=== PATIENT | male | born 1965 | race American Indian/Alaskan Native ===

== ENCOUNTER 2019-11-29 17:38 | Inpatient (IN) | payer BC, OTHER ==
--- NOTE | 2019-11-29 18:38 | Event Note ---
ED Screening Note ED Screening Note: coughing that began 3 days ago body aches subjective fever +diarrhea no n/v no SOB PMHx HTN-has not taken his medication in a month two people at his job tested positive for coronavirus no allergies to meds This initial assessment/diagnostic orders/clinical plan/treatment(s) is/are subject to change based on patients health status, clinical progression and re- assessment by fellow clinical providers in the ED. Further treatment and workup at subsequent clinical providers discretion. Patient/guardian urged not to elope from the ED as their condition may be serious if not clinically assessed and managed. Initial orders include: labs, CXR
[2019-11-29] MEDS ORDERED: ACETAMINOPHEN 325 MG TAB PO ONE (18:39)
[2019-11-29] MEDS ORDERED: SODIUM CHLORIDE 0.9% 1000 ML IV SOLN IV ONE (19:07)
[2019-11-29 19:19] LABS: Basophils % (Auto) 0.3 % (0.0-1.8); Hematocrit 46.7 % (35.5-45.6); Hemoglobin 16.2 gm/dl (11.8-15.2); Lymphocytes # (Auto) 1.8 K/mm3 (1.2-5.4); Lymphocytes % (Auto) 20.8 % (13.4-35.0); Mean Corpuscular HGB Conc 35 % (32-34); Mean Corpuscular Volume 93 fl (84-94); Monocytes # (Auto) 0.5 K/mm3 (0.0-0.8); Monocytes % (Auto) 5.9 % (0.0-7.3); Platelet Count 141 K/mm3 (140-440); Red Blood Count 5.02 M/mm3 (3.65-5.03); Red Cell Distribution Width 13.9 % (13.2-15.2)
--- NOTE | 2019-11-29 19:22 | XRay Report ---
CHEST 2 VIEWS INDICATION / CLINICAL INFORMATION: cough, subjective fever. COMPARISON: None available. FINDINGS: SUPPORT DEVICES: None. HEART / MEDIASTINUM: No significant abnormality. LUNGS / PLEURA: There are subtle parenchymal opacities in the lung bases.No pneumothorax. ADDITIONAL FINDINGS: No significant additional findings. IMPRESSION: 1. There is subtle patchy airspace opacity in the lung bases. This could represent atelectasis. This could represent evolving pneumonia or pneumonitis Signer Name: Dereck Hunter MD Signed: 11/29/2019 7:18 PM Workstation Name: [id number]
[2019-11-29 19:38] LABS: Albumin 4.1 g/dL (3.9-5); Calcium 8.7 mg/dL (8.4-10.2)
[2019-11-29] MEDS ORDERED: IBUPROFEN 800 MG TAB PO ONE (20:18)
[2019-11-29] MEDS ORDERED: AZITHROMYCIN 250 MG TAB PO ONE (20:19)
[2019-11-29] MEDS ORDERED: AZITHROMYCIN 500 MG in SODIUM CHLORIDE 0.9% 250ML 250 ML IV ONE (20:27)
--- NOTE | 2019-11-29 20:45 | Emergency Department Report ---
ED Fever HPI - General Chief Complaint: Pain General Stated Complaint: BODY PAIN PUI?: Yes Time Seen by Provider: 11/29/19 18:35 Source: patient Exam Limitations: no limitations - History of Present Illness Initial Comments: 54-year-old male with a past medical history hypertension presents to the hospital complaining of cough, fever, generalized body aches, and diarrhea for last 3 days. Patient denies nausea, vomiting, or shortness of breath. Patient with history of hypertension but out of his unknown BP medication x1 week. Patient denies known history of renal insufficiency but states his been over 1 year since he has had blood drawn. Patient reports that 2 of his coworkers have tested positive for coronavirus. He has been wearing a mask at his job. He has not been tested for coronavirus. His is here with similar symptoms ED Review of Systems ROS: Stated complaint: BODY PAIN Other details as noted in HPI Comment: All other systems reviewed and negative ED Past Medical Hx - Past Medical History Previous Medical History?: Yes Hx Hypertension: Yes - Surgical History Past Surgical History?: Yes Additional Surgical History: Back - Social History Smoking Status: Never Smoker Substance Use Type: None ED Physical Exam - General Limitations: No Limitations - Other Other exam information: General: No acute distress Head: Atraumatic Eyes: normal appearance ENT: Moist mucous membranes Neck: Normal appearance, no midline tenderness Chest: Clear to auscultation bilaterally CV: Regular rate and rhythm Abdomen: Soft, normal bowel sounds, nontender, nondistended, no rebound or guarding Back: Normal inspection Extremity: Normal inspection, full range of motion Neuro: Alert O x 3, no facial asymmetry, speech clear, no gross motor sensory de ficit Psych: Appropriate behavior Skin: No rash ED Course Vital Signs 11/29/19 11/29/19 11/29/19 17:46 17:47 18:39 Temperature 97.9 F 97.9 F 102.3 F H Pulse Rate 90 90 85 Respiratory 20 20 26 H Rate Blood Pressure 96/66 97/68 Blood Pressure 149/128 [Right] O2 Sat by Pulse 98 98 94 Oximetry 11/29/19 11/29/19 11/29/19 19:53 20:00 20:06 Temperature 101.1 F H Pulse Rate 73 Respiratory 20 14 20 Rate Blood Pressure Blood Pressure 99/67 [Right] O2 Sat by Pulse 94 93 Oximetry 11/29/19 11/29/1911/28/20 20:09 20:16 20:30 Temperature Pulse Rate 63 67 Respiratory 20 25 H 15 Rate Blood Pressure 99/67 99/67 Blood Pressure [Right] O2 Sat by Pulse 93 91 96 Oximetry 11/29/19 11/29/19 11/29/19 20:46 21:00 21:12 Temperature Pulse Rate 67 62 Respiratory 11 L 23 20 Rate Blood Pressure 99/67 99/67 Blood Pressure 99/71 [Right] O2 Sat by Pulse 99 99 Oximetry 11/29/19 11/29/19 11/29/19 21:16 21:30 21:46 Temperature Pulse Rate 62 62 Respiratory 22 19 Rate Blood Pressure 99/71 99/71 99/71 Blood Pressure [Right] O2 Sat by Pulse 98 92 97 Oximetry 11/29/19 11/29/19 11/29/19 22:00 22:12 22:16 Temperature Pulse Rate 60 Respiratory 20 20 Rate Blood Pressure 99/71 99/71 Blood Pressure 102/72 [Right] O2 Sat by Pulse 99 99 Oximetry 11/29/19 11/29/19 11/29/19 22:30 22:34 22:46 Temperature Pulse Rate Respiratory Rate Blood Pressure 99/71 102/72 102/72 Blood Pressure [Right] O2 Sat by Pulse 100 95 98 Oximetry 11/29/19 11/29/19 11/29/19 23:00 23:16 23:30 Temperature Pulse Rate Respiratory Rate Blood Pressure 102/72 102/72 102/72 Blood Pressure [Right] O2 Sat by Pulse 98 99 100 Oximetry 11/29/19 11/29/19 11/30/19 23:34 23:46 00:00 Temperature Pulse Rate Respiratory Rate Blood Pressure 102/72 102/72 102/72 Blood Pressure [Right] O2 Sat by Pulse 100 100 99 Oximetry 11/30/19 11/30/19 00:16 00:30 Temperature Pulse Rate Respiratory Rate Blood Pressure 173/109 173/109 Blood Pressure [Right] O2 Sat by Pulse 98 98 Oximetry ED Medical Decision Making - Lab Data Result diagrams: 11/29/19 18:50 11/29/19 18:50 Lab Results 11/29/19 11/29/19 11/29/19 Range/Units 18:50 18:50 19:13 WBC 8.5 (4.5-11.0) K/mm3 RBC 5.02 (3.65-5.03) M/mm3 Hgb 16.2 H (11.8-15.2) gm/dl Hct 46.7 H (35.5-45.6) % MCV 93 (84-94) fl MCH 32 (28-32) pg MCHC 35 H (32-34) % RDW 13.9 (13.2-15.2) % Plt Count 141 (140-440) K/mm3 Lymph % (Auto) 20.8 (13.4-35.0) % Adams % (Auto) 5.9 (0.0-7.3) % Eos % (Auto) 0.0 (0.0-4.3) % Baso % (Auto) 0.3 (0.0-1.8) % Lymph # 1.8 (1.2-5.4) K/mm3 Adams # 0.5 (0.0-0.8) K/mm3 Eos # 0.0 (0.0-0.4) K/mm3 Baso # 0.0 (0.0-0.1) K/mm3 Seg Neutrophils % 73.0 H (40.0-70.0) % Seg Neutrophils # 6.2 (1.8-7.7) K/mm3 Sodium 136 L (137-145) mmol/L Potassium 3.8 (3.6-5.0) mmol/L Chloride 97.6 L (98-107) mmol/L Carbon Dioxide 24 (22-30) mmol/L Anion Gap 18 mmol/L BUN 21 H (9-20) mg/dL Creatinine 2.0 H (0.8-1.5) mg/dL Estimated GFR 43 ml/min BUN/Creatinine Ratio 11 % Glucose 114 H (75-100) mg/dL Lactic Acid 1.60 (0.7-2.0) mmol/L Calcium 8.7 (8.4-10.2) mg/dL Total Bilirubin 0.60 (0.1-1.2) mg/dL AST 39 (5-40) units/L ALT 24 (7-56) units/L Alkaline Phosphatase 69 (35-129) units/L Total Protein 7.7 (6.3-8.2) g/dL Albumin 4.1 (3.9-5) g/dL Albumin/Globulin Ratio 1.1 % - Radiology Data Radiology results: report reviewed - Medical Decision Making As per respiratory therapist note Room air walking test done with patient per Dr Dia's orders. SPO2 91% resting in bed prior to walking. SPO2 98% breathing room air consistently walking for about 3 minutes. Md & RN made aware of [facility]ANGER assessment. Patient does have a saturation 91% at rest. Patient also has renal sufficiency with unknown chronicity and presented with borderline hypotension despite history of hypertension and noncompliance with meds Patient treated with azithromycin for bilateral pneumonia as well as Tylenol, Motrin for persistent fever, and 30 mL/kg bolus of normal saline for borderline hypotension. Lactic acid normal. Plan to admit patient to the hospital for suspected COVID. Isolation precautions ordered. Covid order set ordered. Critical Care Time: No Critical care attestation.: If time is entered above; I have spent that time in minutes in the direct care of this critically ill patient, excluding procedure time. ED Disposition Clinical Impression: Suspected COVID-19 virus infection, Bilateral pneumonia, Hypoxia, Renal insufficiency Disposition: OP ADMIT IP TO THIS HOSP Is pt being admited?: Yes Condition: Stable
[2019-11-29] MEDS ORDERED: SODIUM CHLORIDE 0.9% 1000 ML 1,000 ML ONE (21:30)
[2019-11-29] MEDS ORDERED: ONDANSETRON 4 MG/2 ML INJ IV PRN (23:31)
[2019-11-30 01:42] LABS: C-Reactive Protein 1.5 mg/dL (0.00-1.30)
[2019-11-30] MEDS ORDERED: SODIUM CHLORIDE 0.9% 1000 ML 1,000 ML ONE (03:48)
[2019-11-30] MEDS: SODIUM CHLORIDE 0.9% 1000 ML 1,000 ML IV SCH ×3 (04:07→20:51)
--- NOTE | 2019-11-30 05:16 | History and Physical Report ---
History of Present Illness Date of examination: 11/29/19 Date of admission: 11/29/19 22:25 Chief complaint: Body ache, fever and cough History of present illness: 54 year old presnting to the emergency room with fever,cough,bodyche and diarrhea. Patient was in contact with [employer] at his job. There is no history of chest pain, nausea or vomiting Past History Past Medical History: hypertension Past Surgical History: Other (Back) Social history: no significant social history Family history: no significant family history Medications and Allergies Allergies Allergy/AdvReac Type Severity Reaction Status Date / Time No Known Allergies Allergy Unverified 11/29/19 17:43 Home Medications Medication Instructions Recorded Confirmed Last Taken Type No Known Home Medications [No 11/30/19 11/30/19 Unknown History Reported Home Medications] Active Meds: Active Medications Acetaminophen (Tylenol) 650 mg PO Q4H PRN PRN Reason: Fever >101 Azithromycin 500 mg/ Sodium (Chloride) 250 mls @ 250 mls/hr IV Q24HR [place]; Protocol Ceftriaxone Sodium (Rocephin/Ns 2 Gm/100 Ml) 2 gm in 100 mls @ 200 mls/hr IV Q24HR [place]; Protocol Sodium Chloride (Nacl 0.9% 1000 Ml) 1,000 mls @ 125 mls/hr IV DIRECT [place] Last Admin: 11/30/19 04:07 Dose: 125 mls/hr Documented by: Ondansetron HCl (Zofran) 4 mg IV Q8H PRN PRN Reason: Nausea And Vomiting Review of Systems Constitutional: fever, no weight loss, no weight gain, no chills, no sweats, no night sweats, no fatigue, no weakness, no malaise Eyes: bilateral: other (NO BILATERAL EYE SYMPTOMS) Ears, nose, mouth and throat: no ear pain, no ear discharge, no nasal congestion, no nasal discharge, no sinus pressure, no sinus pain, no mouth pain, no dysphagia, no hoarseness, no sore throat, no swelling in mouth, no swelling in throat, no headache Cardiovascular: shortness of breath, no chest pain, no palpitations, no syncope, no lightheadedness, no claudication Respiratory: cough, shortness of breath, no congestion Gastrointestinal: diarrhea, no nausea, no vomiting, no constipation, no change in bowel habits, no melena, no hematochezia, no loss of appetite, no early satiety, no jaundice, no dyspepsia/bloating Genitourinary Male: dysuria Rectal: no pain, no itching Musculoskeletal: no neck stiffness, no neck pain, no shooting arm pain, no arm numbness/tingling, no muscle weakness, no muscle cramps, no myalgias Integumentary: no rash, no pruritis, no redness, no sores, no jaundice, no boils, no lesions, no darkening of skin, no dryness Neurological: no paralysis, no weakness, no parathesias, no numbness, no tingling, no seizures, no syncope, no tremors, no ataxia, no headaches, no convulsions, no change in speech, no change in mentation, no confusion, no double vision, no loss of vision Psychiatric: no anxiety, no insomnia, no hypersomnia, no change in libido, no suicidal ideation, no disorientation, no confusion Endocrine: no cold intolerance, no heat intolerance, no polydipsia, no polyuria, no nocturia, no excessive sweating, no palpatations Hematologic/Lymphatic: no easy bruising, no easy bleeding, no lymphadenopathy, no lymphedema Exam - Constitutional Vitals: Temp Pulse Resp BP Pulse Ox 101.1 F H 59 L 19 158/102 95 11/29/19 20:06 11/30/19 04:00 11/30/19 04:00 11/30/19 04:00 11/30/19 04:00 General appearance: Present: no acute distress, well-nourished. Absent: dis heveled - EENT Eyes: Present: PERRL, EOM intact. Absent: scleral icterus ENT: hearing intact - Neck Neck: Present: supple, normal ROM. Absent: enlarged thyroid, carotid bruits - Cardiovascular Rhythm: regular Heart Sounds: Present: S1 & S2. Absent: gallop, systolic murmur, diastolic murmur, click - Extremities Extremities: no ischemia - Abdominal General gastrointestinal: Present: soft, non-tender, non-distended, normal bowel sounds. Absent: tender, distended, rigid Male genitourinary: Present: deferred - Rectal Rectal Exam: deferred - Integumentary Integumentary: Present: clear, warm - Musculoskeletal Musculoskeletal: strength equal bilaterally - Psychiatric Psychiatric: appropriate mood/affect Results - Labs CBC & Chem 7: 11/29/19 18:50 11/29/19 22:59 Labs: Laboratory Last Values WBC 8.5 K/mm3 (4.5-11.0) 11/29/19 18:50 RBC 5.02 M/mm3 (3.65-5.03) 11/29/19 18:50 Hgb 16.2 gm/dl (11.8-15.2) H 11/29/19 18:50 Hct 46.7 % (35.5-45.6) H 11/29/19 18:50 MCV 93 fl (84-94) 11/29/19 18:50 MCH 32 pg (28-32) 11/29/19 18:50 MCHC 35 % (32-34) H 11/29/19 18:50 RDW 13.9 % (13.2-15.2) 11/29/19 18:50 Plt Count 141 K/mm3 (140-440) 11/29/19 18:50 Lymph % (Auto) 20.8 % (13.4-35.0) 11/29/19 18:50 Heard % (Auto) 5.9 % (0.0-7.3) 11/29/19 18:50 Eos % (Auto) 0.0 % (0.0-4.3) 11/29/19 18:50 Baso % (Auto) 0.3 % (0.0-1.8) 11/29/19 18:50 Lymph # 1.8 K/mm3 (1.2-5.4) 11/29/19 18:50 Heard # 0.5 K/mm3 (0.0-0.8) 11/29/19 18:50 Eos # 0.0 K/mm3 (0.0-0.4) 11/29/19 18:50 Baso # 0.0 K/mm3 (0.0-0.1) 11/29/19 18:50 Seg Neutrophils % 73.0 % (40.0-70.0) H 11/29/19 18:50 Seg Neutrophils # 6.2 K/mm3 (1.8-7.7) 11/29/19 18:50 D-Dimer 516.74 ng/mlDDU (0-234) H 11/29/19 22:59 Sodium 136 mmol/L (137-145) L 11/29/19 18:50 Potassium 3.8 mmol/L (3.6-5.0) 11/29/19 18:50 Chloride 97.6 mmol/L (98-107) L 11/29/19 18:50 Carbon Dioxide 24 mmol/L (22-30) 11/29/19 18:50 Anion Gap 18 mmol/L 11/29/19 18:50 BUN 21 mg/dL (9-20) H 11/29/19 18:50 Creatinine 2.0 mg/dL (0.8-1.5) H 11/29/19 18:50 Estimated GFR 43 ml/min 11/29/19 18:50 BUN/Creatinine Ratio 11 % 11/29/19 18:50 Glucose 92 mg/dL (75-100) 11/29/19 22:59 Lactic Acid 1.10 mmol/L (0.7-2.0) 11/29/19 22:59 Calcium 8.7 mg/dL (8.4-10.2) 11/29/19 18:50 Total Bilirubin 0.60 mg/dL (0.1-1.2) 11/29/19 18:50 AST 39 units/L (5-40) 11/29/19 18:50 ALT 24 units/L (7-56) 11/29/19 18:50 Alkaline Phosphatase 69 units/L (35-129) 11/29/19 18:50 Lactate Dehydrogenase 301 units/L (91-180) H 11/29/19 22:59 C-Reactive Protein 1.50 mg/dL (0.00-1.30) H 11/29/19 22:59 Total Protein 7.7 g/dL (6.3-8.2) 11/29/19 18:50 Albumin 4.1 g/dL (3.9-5) 11/29/19 18:50 Albumin/Globulin Ratio 1.1 % 11/29/19 18:50 Microbiology: Microbiology 11/29/19 19:13 Peripheral/Venous Blood Culture - Preliminary Culture in Progress 11/29/19 19:13 Peripheral/Venous Blood Culture - Preliminary Culture in Progress Felipe/IV: IV Catheter Type [Left INT / Saline Lock Antecubital] Assessment and Plan - Patient Problems (1) Bilateral pneumonia Current Visit: Yes Status: Acute Plan to address problem: I. I.V Zithromax Antibiotic 2. I.V Rocephine Antibiotic 3. Tylenol for fever 4. Robitussin for cough (2) Suspected COVID-19 virus infection Current Visit: Yes Status: Acute Plan to address problem: 1. Contact and Droplet Isolation 2. COVID 19 testing (3) Renal insufficiency Current Visit: Yes Status: Acute Plan to address problem: Nephrology consult with Dr. Campos
[2019-11-30 05:26] LABS: Bilirubin,Urine NEG (Negative); Blood,Urine MOD (Negative); Color,Urine Yellow (Yellow); Mucus,Urine FEW /HPF; Urobilinogen,Urine < 2.0 mg/dL (<2.0)
[2019-11-30] MEDS ORDERED: ACETAMINOPHEN 500 MG TAB ONE (08:40)
[2019-11-30] MEDS: ACETAMINOPHEN 325 MG TAB PO PRN ×2 (09:08→20:49)
--- NOTE | 2019-11-30 09:33 | Consultation ---
History of Present Illness - Reason for Consult Consult date: 11/30/19 acute renal failure - History of Present Illness 54-year-old male was admitted for worsening cough and fever with diarrhea for last 3 days. he reports that 2 of his coworkers have tested positive for coronavirus. he was found to have abnormal kidney function and renal consult was requested Past History Past Medical History: hypertension Past Surgical History: Other (Back) Social history: no significant social history Family history: no significant family history Medications and Allergies Allergies Allergy/AdvReac Type Severity Reaction Status Date / Time No Known Allergies Allergy Unverified 11/29/19 17:43 Home Medications Medication Instructions Recorded Confirmed Last Taken Type No Known Home Medications [No 11/30/19 11/30/19 Unknown History Reported Home Medications] Active Meds: Active Medications Acetaminophen (Tylenol) 650 mg PO Q4H PRN PRN Reason: Fever >101 Last Admin: 11/30/19 09:08 Dose: 650 mg Documented by: Azithromycin 500 mg/ Sodium (Chloride) 250 mls @ 250 mls/hr IV Q24HR [place]; Protocol Ceftriaxone Sodium (Rocephin/Ns 2 Gm/100 Ml) 2 gm in 100 mls @ 200 mls/hr IV Q24HR [place]; Protocol Sodium Chloride (Nacl 0.9% 1000 Ml) 1,000 mls @ 125 mls/hr IV DIRECT [place] Last Admin: 11/30/19 04:07 Dose: 125 mls/hr Documented by: Ondansetron HCl (Zofran) 4 mg IV Q8H PRN PRN Reason: Nausea And Vomiting Review of Systems All systems: negative (cough, fever) Exam - Vital Signs Vital signs: Vital Signs Temp Pulse Resp BP Pulse Ox 97.9 F 90 20 149/128 98 11/29/19 17:46 11/29/19 17:46 11/29/19 17:46 11/29/19 17:46 11/29/19 17:46 Results - Lab Results 11/29/19 18:50 11/29/19 22:59 Most recent lab results Calcium 8.7 mg/dL (8.4-10.2) 11/29/19 18:50 Assessment and Plan acute kidney failure likely prerenal azotemia Sepsis COVID-19 rule out unknown Cr baseline Cont IVF will check urine lytes, protein and eos will check renal US renally dose meds Strict I&O Daily weight Avoid nephrotoxins Yoel Campos MD [phone]
[2019-11-30] MEDS ORDERED: AZITHROMYCIN 500 MG in SODIUM CHLORIDE 0.9% 250ML 250 ML IV SCH (10:00)
[2019-11-30] MEDS ORDERED: cefTRIAXone/NS 2 GM/100 ML 2 GM/100 ML BAG IV SCH (10:00)
--- NOTE | 2019-11-30 12:53 | Consultation ---
History of Present Illness - Reason for Consult Consult date: 11/30/19 suspected COVID Requesting physician: SHERRY RENAE - History of Present Illness The patient is a 54-year-old male with hypertension who was admitted to the hospital yesterday after he presented with complaints of fever, cough, generalized body aches going on for about 3 days. He was also having a few episodes of diarrhea. He reportedly had been exposed to COVID-19 positive coworkers. Chest x-ray on admission showed patchy bilateral pulmonary opacities. COVID-19 PCR is positive. Infectious diseases was consulted for additional evaluation. He has been having fevers, T-max 102.3 F. Oxygen saturation is 100% on room air. Review of Systems: reviewed in the chart, unable to obtain directly due to PPE shortage and preservation Past History Past Medical History: hypertension Past Surgical History: Other (Back) Social history: no significant social history Family history: no significant family history Medications and Allergies Allergies Allergy/AdvReac Type Severity Reaction Status Date / Time No Known Allergies Allergy Unverified 11/29/19 17:43 Home Medications Medication Instructions Recorded Confirmed Last Taken Type No Known Home Medications [No 11/30/19 11/30/19 Unknown History Reported Home Medications] Active Meds: Active Medications Acetaminophen (Tylenol) 650 mg PO Q4H PRN PRN Reason: Fever >101 Last Admin: 11/30/19 09:08 Dose: 650 mg Documented by: Apixaban (Eliquis) 2.5 mg PO Q12HR [place]; Protocol Azithromycin 500 mg/ Sodium (Chloride) 250 mls @ 250 mls/hr IV Q24HR [place]; Protocol Last Admin: 11/30/19 10:20 Dose: 250 mls/hr Documented by: Ceftriaxone Sodium (Rocephin/Ns 2 Gm/100 Ml) 2 gm in 100 mls @ 200 mls/hr IV Q24HR [place]; Protocol Last Admin: 11/30/19 10:21 Dose: 200 mls/hr Documented by: Sodium Chloride (Nacl 0.9% 1000 Ml) 1,000 mls @ 125 mls/hr IV DIRECT [place] Last Admin: 11/30/19 10:21 Dose: 125 mls/hr Documented by: Ondansetron HCl (Zofran) 4 mg IV Q8H PRN PRN Reason: Nausea And Vomiting Physical Examination - Physical Exam Narrative exam: Physical Exam (reviewed in chart due to PPE conservation) Constitutional: limited due to PPE conservation strategy Head, Ears, Nose: limited due to PPE conservation strategy Eyes: limited due to PPE conservation strategy Neck: limited due to PPE conservation strategy Oral: limited due to PPE conservation strategy Cardiovascular: limited due to PPE conservation strategy Respiratory: limited due to PPE conservation strategy GI: limited due to PPE conservation strategy Musculoskeletal: limited due to PPE conservation strategy Skin: limited due to PPE conservation strategy Hem/Lymphatic: limited due to PPE conservation strategy Psych: limited due to PPE conservation strategy Neurological: limited due to PPE conservation strategy - Constitutional Vitals: Vital Signs Temp Pulse Resp BP Pulse Ox 100.8 F H 59 L 17 140/83 100 11/30/19 09:08 11/30/19 12:00 11/30/19 12:00 11/30/19 08:00 11/30/19 12:00 Temperature -Last 24 Hours Temperature 100.8 F Temperature 99.1 F Temperature 101.1 F Temperature 102.3 F Temperature 97.9 F Temperature 97.9 F Results - Labs CBC & Chem 7: 11/29/19 18:50 11/29/19 22:59 Labs: Abnormal lab results 11/29/19 11/29/19 11/29/19 Range/Units 18:50 18:50 22:59 Hgb 16.2 H (11.8-15.2) gm/dl Hct 46.7 H (35.5-45.6) % MCHC 35 H (32-34) % Seg Neutrophils % 73.0 H (40.0-70.0) % D-Dimer 516.74 H (0-234) ng/mlDDU Sodium 136 L (137-145) mmol/L Chloride 97.6 L (98-107) mmol/L BUN 21 H (9-20) mg/dL Creatinine 2.0 H (0.8-1.5) mg/dL Glucose 114 H (75-100) mg/dL Ferritin (13.0-400.0) ng/mL Lactate Dehydrogenase (91-180) units/L Total Creatine Kinase (55-170) units/L C-Reactive Protein (0.00-1.30) mg/dL Coronavirus (PCR) (Negative) 11/29/19 11/30/19 11/30/19 Range/Units 22:59 04:56 08:04 Hgb (11.8-15.2) gm/dl Hct (35.5-45.6) % MCHC (32-34) % Seg Neutrophils % (40.0-70.0) % D-Dimer (0-234) ng/mlDDU Sodium (137-145) mmol/L Chloride (98-107) mmol/L BUN (9-20) mg/dL Creatinine (0.8-1.5) mg/dL Glucose (75-100) mg/dL Ferritin 452.0 H (13.0-400.0) ng/mL Lactate Dehydrogenase 301 H (91-180) units/L Total Creatine Kinase (55-170) units/L C-Reactive Protein 1.50 H (0.00-1.30) mg/dL Coronavirus (PCR) Positive A (Negative) 11/30/19 Range/Units 10:45 Hgb (11.8-15.2) gm/dl Hct (35.5-45.6) % MCHC (32-34) % Seg Neutrophils % (40.0-70.0) % D-Dimer (0-234) ng/mlDDU Sodium (137-145) mmol/L Chloride (98-107) mmol/L BUN (9-20) mg/dL Creatinine (0.8-1.5) mg/dL Glucose (75-100) mg/dL Ferritin (13.0-400.0) ng/mL Lactate Dehydrogenase (91-180) units/L Total Creatine Kinase 435 H (55-170) units/L C-Reactive Protein (0.00-1.30) mg/dL Coronavirus (PCR) (Negative) - Imaging and Cardiology Chest x-ray: report reviewed (patchy infiltrates) Assessment and Plan Cultures: 11/29/2019 blood culture: In process 11/30/2019 COVID-19 PCR: Positive A/P: 54-year-old male with hypertension with: #Bilateral pneumonia secondary to COVID-19: D-dimer 516, ferritin 452, LDH 301, procalcitonin 0.07, CRP 1.5. Oxygen saturation is 100% on room air. #Acute kidney injury: Creatinine 2.0. Nephrology following. Recs: Patient's O2 saturation is 100% on room air, no role for dexamethasone at this time. If he develops hypoxia, start IV/PO Dexamethasone 6 mg daily x 10 days Elevated d-dimer, consider weight-based anticoagulation prophylaxis Procalcitonin is normal, antibiotics discontinued trend ferritin, LDH, d-dimer, CRP every 2 days for risk stratification and to assess disease progression Aurea Tran MD, FACP [facility] C: [phone] O: [phone] F: [phone]
[2019-11-30] MEDS ORDERED: APIXABAN 5 MG TAB PO SCH (13:00)
[2019-11-30] MEDS ORDERED: APIXABAN 2.5 MG TAB PO SCH (13:00)
--- NOTE | 2019-11-30 13:59 | Progress Note ---
Assessment and Plan Assessment and plan: Patient is a 54-year-old male with a past medical history hypertension presents to the hospital complaining of cough, fever, generalized body aches, and diarrhea for last 3 days. According to the patient the also had similar symptoms. However he denies nausea, vomiting, or shortness of breath. Patient with history of hypertension but out of his unknown BP medication x1 week. Patient denies known history of renal insufficiency but states his been over 1 year since he has had blood drawn. Patient reports that 2 of his coworkers have tested positive for coronavirus. He has been wearing a mask at his job. He has not been tested for coronavirus. His is here with similar symptoms. COVID- 19 testing was positive patient had been having fevers with T-max of 102.3 Sepsis COVID-19 Bilateral pneumonia likely secondary to coronavirus Secondary Coagulopathy JONH secondary to vasomotor nephropathy Plan Continue supportive care Start anticogulation Pre-and post Ambulatory Oxygen ID Input noted Nephrology consult Blood cx Follow Blood cultures Antibiotics per ID History Interval history: Patient seen and examined in no apparent respiratory distress at this time. Hospitalist Physical - Physical exam Narrative exam: VITAL SIGNS: Reviewed. GENERAL: The patient appears normally developed, Vital signs as documented. HEAD: No signs of head trauma. EYES: Pupils are equal. Extraocular motions intact. EARS: Hearing grossly intact. MOUTH: Oropharynx is normal. NECK: No adenopathy, no JVD. CHEST: Chest with clear breath sounds bilaterally. No wheezes, rales, or rhonchi. CARDIAC: Regular rate and rhythm. S1 and S2, without murmurs, gallops, or rubs. VASCULAR: No Edema. Peripheral pulses normal and equal in all extremities. ABDOMEN: Soft, non tender and non distended. No rebound or guarding, and no masses palpated. Bowel Sounds normal. MUSCULOSKELETAL: Good range of motion of all major joints. Extremities without clubbing, cyanosis or edema. NEUROLOGIC EXAM: Alert and oriented x 3 No focal sensory or strength deficits. Speech normal. Follows commands. PSYCHIATRIC: Mood normal. SKIN: detial exam as documented in skin assessment - Constitutional Vitals: Temp Pulse Resp BP Pulse Ox 100.8 F H 59 L 17 140/83 100 11/30/19 09:08 11/30/19 12:00 11/30/19 12:00 11/30/19 08:00 11/30/19 12:00 General appearance: Present: no acute distress, well-nourished. Absent: disheveled Results - Labs CBC & Chem 7: 11/29/19 18:50 11/29/19 22:59 Labs: Laboratory Last Values WBC 8.5 K/mm3 (4.5-11.0) 11/29/19 18:50 RBC 5.02 M/mm3 (3.65-5.03) 11/29/19 18:50 Hgb 16.2 gm/dl (11.8-15.2) H 11/29/19 18:50 Hct 46.7 % (35.5-45.6) H 11/29/19 18:50 MCV 93 fl (84-94) 11/29/19 18:50 MCH 32 pg (28-32) 11/29/19 18:50 MCHC 35 % (32-34) H 11/29/19 18:50 RDW 13.9 % (13.2-15.2) 11/29/19 18:50 Plt Count 141 K/mm3 (140-440) 11/29/19 18:50 Lymph % (Auto) 20.8 % (13.4-35.0) 11/29/19 18:50 [place] % (Auto) 5.9 % (0.0-7.3) 11/29/19 18:50 Eos % (Auto) 0.0 % (0.0-4.3) 11/29/19 18:50 Baso % (Auto) 0.3 % (0.0-1.8) 11/29/19 18:50 Lymph # 1.8 K/mm3 (1.2-5.4) 11/29/19 18:50 [place] # 0.5 K/mm3 (0.0-0.8) 11/29/19 18:50 Eos # 0.0 K/mm3 (0.0-0.4) 11/29/19 18:50 Baso # 0.0 K/mm3 (0.0-0.1) 11/29/19 18:50 Seg Neutrophils % 73.0 % (40.0-70.0) H 11/29/19 18:50 Seg Neutrophils # 6.2 K/mm3 (1.8-7.7) 11/29/19 18:50 D-Dimer 516.74 ng/mlDDU (0-234) H 11/29/19 22:59 Sodium 136 mmol/L (137-145) L 11/29/19 18:50 Potassium 3.8 mmol/L (3.6-5.0) 11/29/19 18:50 Chloride 97.6 mmol/L (98-107) L 11/29/19 18:50 Carbon Dioxide 24 mmol/L (22-30) 11/29/19 18:50 Anion Gap 18 mmol/L 11/29/19 18:50 BUN 21 mg/dL (9-20) H 11/29/19 18:50 Creatinine 2.0 mg/dL (0.8-1.5) H 11/29/19 18:50 Estimated GFR 43 ml/min 11/29/19 18:50 BUN/Creatinine Ratio 11 % 11/29/19 18:50 Glucose 92 mg/dL (75-100) 11/29/19 22:59 Lactic Acid 1.10 mmol/L (0.7-2.0) 11/29/19 22:59 Calcium 8.7 mg/dL (8.4-10.2) 11/29/19 18:50 Ferritin 452.0 ng/mL (13.0-400.0) H 11/30/19 04:56 Total Bilirubin 0.60 mg/dL (0.1-1.2) 11/29/19 18:50 AST 39 units/L (5-40) 11/29/19 18:50 ALT 24 units/L (7-56) 11/29/19 18:50 Alkaline Phosphatase 69 units/L (35-129) 11/29/19 18:50 Lactate Dehydrogenase 301 units/L (91-180) H 11/29/19 22:59 Total Creatine Kinase 435 units/L (55-170) H 11/30/19 10:45 C-Reactive Protein 1.50 mg/dL (0.00-1.30) H 11/29/19 22:59 Total Protein 7.7 g/dL (6.3-8.2) 11/29/19 18:50 Albumin 4.1 g/dL (3.9-5) 11/29/19 18:50 Albumin/Globulin Ratio 1.1 % 11/29/19 18:50 Procalcitonin 0.07 ng/mL (<0.15) 11/29/19 22:59 Urine Color Yellow (Yellow) 11/30/19 05:08 Urine Turbidity Clear (Clear) 11/30/19 05:08 Urine pH 5.0 (5.0-7.0) 11/30/19 05:08 Ur Specific [place] 1.016 (1.003-1.030) 11/30/19 05:08 Urine Protein 30 mg/dl mg/dL (Negative) 11/30/19 05:08 Urine Glucose (UA) Neg mg/dL (Negative) 11/30/19 05:08 Urine Ketones Neg mg/dL (Negative) 11/30/19 05:08 Urine Blood Mod (Negative) 11/30/19 05:08 Urine Nitrite Neg (Negative) 11/30/19 05:08 Urine Bilirubin Neg (Negative) 11/30/19 05:08 Urine Urobilinogen < 2.0 mg/dL (<2.0) 11/30/19 05:08 Ur Leukocyte Esterase Neg (Negative) 11/30/19 05:08 Urine WBC (Auto) 1.0 /HPF (0.0-6.0) 11/30/19 05:08 Urine RBC (Auto) 3.0 /HPF (0.0-6.0) 11/30/19 05:08 U Epithel Cells (Auto) < 1.0 /HPF (0-13.0) 11/30/19 05:08 Urine Mucus Few /HPF 11/30/19 05:08 Coronavirus (PCR) Positive (Negative) A 11/30/19 08:04 Microbiology: Microbiology 11/29/19 19:13 Peripheral/Venous Blood Culture - Preliminary Culture in Progress 11/29/19 19:13 Peripheral/Venous Blood Culture - Preliminary Culture in Progress Felipe/IV: IV Catheter Type [Left INT / Saline Lock Antecubital] Active Medications - Current Medications Current Medications: Generic Name Dose Route Start Last Admin Trade Name Freq PRN Reason Stop Dose Admin Acetaminophen 650 mg 11/29/19 23:30 11/30/19 09:08 Tylenol PO 650 mg Q4H PRN Administration Fever >101 Apixaban 2.5 mg 11/30/19 13:00 Eliquis PO Q12HR [place] Sodium Chloride 1,000 mls @ 125 mls/hr 11/29/19 23:45 11/30/19 10:21 Nacl 0.9% 1000 Ml IV 125 mls/hr DIRECT [place] Administration Ondansetron HCl 4 mg 11/29/19 23:31 Zofran IV Q8H PRN Nausea And Vomiting
[2019-11-30 14:06] LABS: Creatinine,Urine 193.5 mg/dL (0.1-20.0); Protein/Creatinine Ratio,Urine 0.26
[2019-11-30] MEDS: APIXABAN 2.5 MG TAB PO SCH ×2 (16:01→21:16)
[2019-12-01] MEDS: ACETAMINOPHEN 325 MG TAB PO PRN ×2 (00:56→12:10)
[2019-12-01] MEDS: SODIUM CHLORIDE 0.9% 1000 ML 1,000 ML IV SCH ×2 (02:43→19:20)
[2019-12-01 05:52] LABS: Basophils % (Auto) 0.2 % (0.0-1.8); Hematocrit 39.7 % (35.5-45.6); Hemoglobin 13.5 gm/dl (11.8-15.2); Lymphocytes # (Auto) 1.2 K/mm3 (1.2-5.4); Lymphocytes % (Auto) 21.9 % (13.4-35.0); Mean Corpuscular HGB Conc 34 % (32-34); Mean Corpuscular Volume 92 fl (84-94); Monocytes # (Auto) 0.4 K/mm3 (0.0-0.8); Monocytes % (Auto) 6.5 % (0.0-7.3); Platelet Count 112 K/mm3 (140-440); Red Cell Distribution Width 13.6 % (13.2-15.2)
--- NOTE | 2019-12-01 09:56 | Progress Note ---
Assessment and Plan Assessment and plan: Patient is a 54-year-old male with a past medical history hypertension presents to the hospital complaining of cough, fever, generalized body aches, and diarrhea for last 3 days. According to the patient the also had similar symptoms. However he denies nausea, vomiting, or shortness of breath. Patient with history of hypertension but out of his unknown BP medication x1 week. Patient denies known history of renal insufficiency but states his been over 1 year since he has had blood drawn. Patient reports that 2 of his coworkers have tested positive for coronavirus. He has been wearing a mask at his job. He has not been tested for coronavirus. His is here with similar symptoms. COVID- 19 testing was positive patient had been having fevers with T-max of 102.3 11/30: Still with intermittent fever, No increased oxygen need, await ID re- evaluation, may need antibiotics considering recurrent fever. Dexamethasone 6 mg daily started. ID is also initiating rem D severe and check an interleukin-6 level. No antibiotics at this time as patient procalcitonin is normal Sepsis COVID-19 Bilateral pneumonia likely secondary to coronavirus Secondary Coagulopathy JONH secondary to vasomotor nephropathy Acute hypoxemic respiratory failure Plan Continue supportive care Continue anticogulation Pre-and post Ambulatory Oxygen ID Input noted Nephrology consult Blood cx Follow Blood cultures Antibiotics per ID History Interval history: Patient seen and examined in no apparent respiratory distress at this time. Hospitalist Physical - Physical exam Narrative exam: VITAL SIGNS: Reviewed. GENERAL: The patient appears normally developed, Vital signs as documented. HEAD: No signs of head trauma. EYES: Pupils are equal. Extraocular motions intact. EARS: Hearing grossly intact. MOUTH: Oropharynx is normal. NECK: No adenopathy, no JVD. CHEST: Chest with clear breath sounds bilaterally. No wheezes, rales, or rhonchi. CARDIAC: Regular rate and rhythm. S1 and S2, without murmurs, gallops, or rubs. VASCULAR: No Edema. Peripheral pulses normal and equal in all extremities. ABDOMEN: Soft, non tender and non distended. No rebound or guarding, and no masses palpated. Bowel Sounds normal. MUSCULOSKELETAL: Good range of motion of all major joints. Extremities without clubbing, cyanosis or edema. NEUROLOGIC EXAM: Alert and oriented x 3 No focal sensory or strength deficits. Speech normal. Follows commands. PSYCHIATRIC: Mood normal. SKIN: detail exam as documented in skin assessment - Constitutional Vitals: Temp Pulse Resp BP Pulse Ox 102.2 F H 62 25 H 140/83 97 12/01/19 08:00 12/01/19 08:00 11/30/19 16:00 11/30/19 08:00 11/30/19 16:00 General appearance: Present: no acute distress, well-nourished. Absent: disheveled Results - Labs CBC & Chem 7: 12/01/19 05:31 12/01/19 05:31 Labs: Laboratory Last Values WBC 5.5 K/mm3 (4.5-11.0) 12/01/19 05:31 RBC 4.30 M/mm3 (3.65-5.03) 12/01/19 05:31 Hgb 13.5 gm/dl (11.8-15.2) 12/01/19 05:31 Hct 39.7 % (35.5-45.6) D 12/01/19 05:31 MCV 92 fl (84-94) 12/01/19 05:31 MCH 31 pg (28-32) 12/01/19 05:31 MCHC 34 % (32-34) 12/01/19 05:31 RDW 13.6 % (13.2-15.2) 12/01/19 05:31 Plt Count 112 K/mm3 (140-440) L 12/01/19 05:31 Lymph % (Auto) 21.9 % (13.4-35.0) 12/01/19 05:31 [place] % (Auto) 6.5 % (0.0-7.3) 12/01/19 05:31 Eos % (Auto) 0.0 % (0.0-4.3) 12/01/19 05:31 Baso % (Auto) 0.2 % (0.0-1.8) 12/01/19 05:31 Lymph # 1.2 K/mm3 (1.2-5.4) 12/01/19 05:31 [place] # 0.4 K/mm3 (0.0-0.8) 12/01/19 05:31 Eos # 0.0 K/mm3 (0.0-0.4) 12/01/19 05:31 Baso # 0.0 K/mm3 (0.0-0.1) 12/01/19 05:31 Seg Neutrophils % 71.4 % (40.0-70.0) H 12/01/19 05:31 Seg Neutrophils # 3.9 K/mm3 (1.8-7.7) 12/01/19 05:31 D-Dimer 516.74 ng/mlDDU (0-234) H 11/29/19 22:59 Sodium 140 mmol/L (137-145) 12/01/19 05:31 Potassium 4.3 mmol/L (3.6-5.0) 12/01/19 05:31 Chloride 104.8 mmol/L (98-107) 12/01/19 05:31 Carbon Dioxide 25 mmol/L (22-30) 12/01/19 05:31 Anion Gap 15 mmol/L 12/01/19 05:31 BUN 14 mg/dL (9-20) 12/01/19 05:31 Creatinine 1.5 mg/dL (0.8-1.5) 12/01/19 05:31 Estimated GFR 59 ml/min 12/01/19 05:31 BUN/Creatinine Ratio 9 % 12/01/19 05:31 Glucose 98 mg/dL (75-100) 12/01/19 05:31 Lactic Acid 1.10 mmol/L (0.7-2.0) 11/29/19 22:59 Calcium 8.0 mg/dL (8.4-10.2) L 12/01/19 05:31 Phosphorus 2.70 mg/dL (2.5-4.5) 12/01/19 05:31 Ferritin 452.0 ng/mL (13.0-400.0) H 11/30/19 04:56 Total Bilirubin 0.60 mg/dL (0.1-1.2) 11/29/19 18:50 AST 39 units/L (5-40) 11/29/19 18:50 ALT 24 units/L (7-56) 11/29/19 18:50 Alkaline Phosphatase 69 units/L (35-129) 11/29/19 18:50 Lactate Dehydrogenase 301 units/L (91-180) H 11/29/19 22:59 Total Creatine Kinase 435 units/L (55-170) H 11/30/19 10:45 C-Reactive Protein 1.50 mg/dL (0.00-1.30) H 11/29/19 22:59 Total Protein 7.7 g/dL (6.3-8.2) 11/29/19 18:50 Albumin 4.1 g/dL (3.9-5) 11/29/19 18:50 Albumin/Globulin Ratio 1.1 % 11/29/19 18:50 Procalcitonin 0.07 ng/mL (<0.15) 11/29/19 22:59 Urine Color Yellow (Yellow) 11/30/19 05:08 Urine Turbidity Clear (Clear) 11/30/19 05:08 Urine pH 5.0 (5.0-7.0) 11/30/19 05:08 Ur Specific [place] 1.016 (1.003-1.030) 11/30/19 05:08 Urine Protein 30 mg/dl mg/dL (Negative) 11/30/19 05:08 Urine Glucose (UA) Neg mg/dL (Negative) 11/30/19 05:08 Urine Ketones Neg mg/dL (Negative) 11/30/19 05:08 Urine Blood Mod (Negative) 11/30/19 05:08 Urine Nitrite Neg (Negative) 11/30/19 05:08 Urine Bilirubin Neg (Negative) 11/30/19 05:08 Urine Urobilinogen < 2.0 mg/dL (<2.0) 11/30/19 05:08 Ur Leukocyte Esterase Neg (Negative) 11/30/19 05:08 Urine WBC (Auto) 1.0 /HPF (0.0-6.0) 11/30/19 05:08 Urine RBC (Auto) 3.0 /HPF (0.0-6.0) 11/30/19 05:08 U Epithel Cells (Auto) < 1.0 /HPF (0-13.0) 11/30/19 05:08 Urine Mucus Few /HPF 11/30/19 05:08 Urine Eosinophils None seen (None Seen) 11/30/19 05:08 Urine Creatinine 193.5 mg/dL (0.1-20.0) H 11/30/19 05:08 Protein/Creatinin Ratio 0.26 11/30/19 05:08 Urine Sodium 60 mmol/L 11/30/19 09:32 Urine Total Protein 50 mg/dL (5-11.8) H 11/30/19 05:08 Coronavirus (PCR) Positive (Negative) A 11/30/19 08:04 Microbiology: Microbiology 11/29/19 19:13 Peripheral/Venous Blood Culture - Preliminary NO GROWTH AFTER 24 HOURS 11/29/19 19:13 Peripheral/Venous Blood Culture - Preliminary NO GROWTH AFTER 24 HOURS Felipe/IV: IV Catheter Type [Left Forearm Peripheral IV ] IV Catheter Type [Left INT / Saline Lock Antecubital] Active Medications - Current Medications Current Medications: Generic Name Dose Route Start Last Admin Trade Name Freq PRN Reason Stop Dose Admin Acetaminophen 650 mg 11/29/19 23:30 12/01/19 00:56 Tylenol PO 650 mg Q4H PRN Administration Fever >101 Apixaban 2.5 mg 11/30/19 13:00 11/30/19 21:16 Eliquis PO 2.5 mg Q12HR [place] Administration Sodium Chloride 1,000 mls @ 125 mls/hr 11/29/19 23:45 11/30/19 10:21 Nacl 0.9% 1000 Ml IV 125 mls/hr DIRECT [place] Administration Sodium Chloride 1,000 mls @ 75 mls/hr 11/30/19 14:30 12/01/19 02:43 Nacl 0.9% 1000 Ml IV 75 mls/hr DIRECT [place] Administration Ondansetron HCl 4 mg 11/29/19 23:31 Zofran IV Q8H PRN Nausea And Vomiting
--- NOTE | 2019-12-01 10:16 | Progress Note ---
Assessment and Plan Cultures: 11/29/2019 blood culture: No growth today 11/30/2019 COVID-19 PCR: Positive A/P: 54-year-old male with hypertension with: #Fever: due to COVID. #Bilateral pneumonia secondary to COVID-19: D-dimer 516, ferritin 452, LDH 301, procalcitonin 0.07, CRP 1.5. #Acute hypoxemic respiratory failure: Currently on 3 L nasal cannula #Acute kidney injury: Creatinine 2.0. Nephrology following. Recs: Continuos pulse oxymetry Start Dexamethasone 6 mg daily x 10 days Start Remdesivir 200 mg IV x1 followed by 100 g daily x4 days Obtain interleukin-6 level Recommend weight-based anticoagulation prophylaxis Procalcitonin is normal, antibiotics discontinued trend daily ferritin, LDH, d-dimer, CRP Will follow MD [facility] ([facility]) Office [phone] Subjective Date of service: 12/01/19 Objective - Exam Narrative Exam: Physical Exam (reviewed in chart due to PPE conservation) Constitutional: limited due to PPE conservation strategy Head, Ears, Nose: limited due to PPE conservation strategy Eyes: limited due to PPE conservation strategy Neck: limited due to PPE conservation strategy Oral: limited due to PPE conservation strategy Cardiovascular: limited due to PPE conservation strategy Respiratory: limited due to PPE conservation strategy GI: limited due to PPE conservation strategy Musculoskeletal: limited due to PPE conservation strategy Skin: limited due to PPE conservation strategy Hem/Lymphatic: limited due to PPE conservation strategy Psych: limited due to PPE conservation strategy Neurological: limited due to PPE conservation strategy - Constitutional Vitals: Vital Signs Temp Pulse Resp BP Pulse Ox 102.2 F H 62 25 H 140/83 97 12/01/19 08:00 12/01/19 08:00 11/30/19 16:00 11/30/19 08:00 11/30/19 16:00 Temperature -Last 24 Hours Temperature 102.2 F Temperature 102.2 F Temperature 102.8 F Temperature 102.7 F - Labs CBC & Chem 7: 12/01/19 05:31 12/01/19 05:31 Labs: Abnormal lab results 11/30/19 11/30/19 11/30/19 Range/Units 05:08 08:04 10:45 Plt Count (140-440) K/mm3 Seg Neutrophils % (40.0-70.0) % Calcium (8.4-10.2) mg/dL Total Creatine Kinase 435 H (55-170) units/L Urine Creatinine 193.5 H (0.1-20.0) mg/dL Urine Total Protein 50 H (5-11.8) mg/dL Coronavirus (PCR) Positive A (Negative) 12/01/19 12/01/19 Range/Units 05:31 05:31 Plt Count 112 L (140-440) K/mm3 Seg Neutrophils % 71.4 H (40.0-70.0) % Calcium 8.0 L (8.4-10.2) mg/dL Total Creatine Kinase (55-170) units/L Urine Creatinine (0.1-20.0) mg/dL Urine Total Protein (5-11.8) mg/dL Coronavirus (PCR) (Negative)
[2019-12-01] MEDS: APIXABAN 5 MG TAB PO SCH ×2 (12:16→21:09)
[2019-12-01] MEDS: ZINC SULFATE 220 MG CAP PO SCH (12:17)
[2019-12-01] MEDS: dexAMETHasone 4 MG/ML VIAL IV SCH (12:17)
[2019-12-01] MEDS: ASCORBIC ACID 500 MG TAB PO SCH ×2 (12:23→21:09)
--- NOTE | 2019-12-01 15:02 | Progress Note ---
Assessment and Plan Assessment: Acute renal failure likely secondary to prerenal azotemia Sepsis COVID-19 POSITIVE Bilateral Pneumonia secondary to COVID-19 Plan: -Patient's COVID-19 test came back positive, ID onboard -Renal labs reviewed. Serum creatinine trend down to 1.5 today from 2.0 -Serum creatinine baseline unknown -On NS@ 75 ml/hr -Urine lytes, protein reviewed. No urine eosinophils seen. -Renal US-pending -Renally dose medications -Strict I&O monitoring -Obtain daily weights -Avoid nephrotoxic agents -Continue to monitor Subjective Date of service: 12/01/19 Principal diagnosis: COVID-19 PNEUMONIA Interval history: Patient is COVID-19 positive. Chart reviewed and recommendations provided. Objective - Vital Signs Vital signs: Vital Signs - 12hr 12/01/19 12/01/19 12/01/19 03:36 04:00 08:00 Temperature 102.2 F H 102.2 F H Pulse Rate 73 62 12/01/19 12/01/19 10:41 12:00 Temperature 102.2 F H 99.5 F Pulse Rate - Lab 12/01/19 05:31 12/01/19 05:31 Most recent lab results Calcium 8.0 mg/dL (8.4-10.2) L 12/01/19 05:31 Phosphorus 2.70 mg/dL (2.5-4.5) 12/01/19 05:31 Urine Creatinine 193.5 mg/dL (0.1-20.0) H 11/30/19 05:08 Urine Sodium 60 mmol/L 11/30/19 09:32 Urine Total Protein 50 mg/dL (5-11.8) H 11/30/19 05:08 Medications & Allergies - Medications Allergies/Adverse Reactions: Allergies No Known Allergies Allergy (Unverified 11/29/19 17:43) Home Medications: Home Medications Medication Instructions Recorded Confirmed Last Taken Type No Known Home Medications [No 11/30/19 11/30/19 Unknown History Reported Home Medications] Active Medications: Generic Name Dose Route Start Last Admin Trade Name Freq PRN Reason Stop Dose Admin Acetaminophen 650 mg 11/29/19 23:30 12/01/19 12:10 Tylenol PO 650 mg Q4H PRN Administration Fever >101 Apixaban 5 mg 12/01/19 11:00 12/01/19 12:16 Eliquis PO 5 mg Q12HR [place] Administration Ascorbic Acid 1,000 mg 12/01/19 11:00 12/01/19 12:23 Vitamin C PO 1,000 mg BID [place] Administration Cholecalciferol 5,000 unit 12/01/19 11:00 Vitamin D3 PO DAILY [place] Dexamethasone 6 mg 12/01/19 11:00 12/01/19 12:17 Decadron IV 12/10/19 10:01 6 mg Q24HR [place] Administration Sodium Chloride 1,000 mls @ 125 mls/hr 11/29/19 23:45 11/30/19 10:21 Nacl 0.9% 1000 Ml IV 125 mls/hr DIRECT [place] Administration Sodium Chloride 1,000 mls @ 75 mls/hr 11/30/19 14:30 12/01/19 02:43 Nacl 0.9% 1000 Ml IV 75 mls/hr DIRECT [place] Administration Ondansetron HCl 4 mg 11/29/19 23:31 Zofran IV Q8H PRN Nausea And Vomiting Zinc Sulfate 220 mg 12/01/19 11:00 12/01/19 12:17 Zinc Sulfate PO 220 mg QDAY [place] Administration
[2019-12-01] MEDS: CHOLECALCIFEROL (VIT D3) 5,000 UNIT TAB PO SCH (21:09)
[2019-12-02 05:28] LABS: Basophils % (Auto) 0.2 % (0.0-1.8); Hematocrit 38.8 % (35.5-45.6); Hemoglobin 13.3 gm/dl (11.8-15.2); Lymphocytes # (Auto) 0.8 K/mm3 (1.2-5.4); Lymphocytes % (Auto) 13.9 % (13.4-35.0); Mean Corpuscular HGB Conc 34 % (32-34); Mean Corpuscular Volume 91 fl (84-94); Monocytes # (Auto) 0.2 K/mm3 (0.0-0.8); Platelet Count 122 K/mm3 (140-440); Red Blood Count 4.26 M/mm3 (3.65-5.03); Red Cell Distribution Width 13.7 % (13.2-15.2)
[2019-12-02 05:52] LABS: BUN/Creatinine Ratio 11; Blood Urea Nitrogen 14 mg/dL (9-20); Calcium 8.3 mg/dL (8.4-10.2); Hemolysis Index 6
[2019-12-02] MEDS: SODIUM CHLORIDE 0.9% 1000 ML 1,000 ML IV SCH (06:04)
--- NOTE | 2019-12-02 08:55 | Progress Note ---
Assessment and Plan Acute renal failure likely secondary to prerenal azotemia Sepsis COVID-19 POSITIVE Bilateral Pneumonia secondary to COVID-19 Plan: -Patient's COVID-19 test came back positive, ID onboard -Cr cont to improve, good UOP -will decrease NS to 50 cc/h -Urine lytes, protein reviewed. No urine eosinophils seen. -Renally dose medications -Strict I&O monitoring -Obtain daily weights -Avoid nephrotoxic agents -Continue to monitor Subjective Date of service: 12/02/19 Principal diagnosis: COVID-19 PNEUMONIA Interval history: patient on isolation for COVID-19, chart and lab results reviewed Objective - Vital Signs Vital signs: Vital Signs - 12hr 12/01/19 12/01/19 12/01/19 21:01 21:11 21:21 Temperature Pulse Rate 58 L 63 72 Pulse Rate [ From Monitor] Respiratory 22 29 H 19 Rate Blood Pressure 116/81 116/81 122/69 O2 Sat by Pulse 92 95 96 Oximetry 12/01/19 12/01/19 12/01/19 21:31 21:41 21:51 Temperature Pulse Rate 65 65 68 Pulse Rate [ From Monitor] Respiratory 27 H 25 H 27 H Rate Blood Pressure 122/69 122/69 122/69 O2 Sat by Pulse 95 96 94 Oximetry 12/01/19 12/01/19 12/01/19 22:01 22:11 22:21 Temperature Pulse Rate 54 L 53 L 52 L Pulse Rate [ From Monitor] Respiratory 26 H 25 H 25 H Rate Blood Pressure 120/77 120/77 120/77 O2 Sat by Pulse 94 94 94 Oximetry 12/01/19 12/01/19 12/01/19 22:31 22:41 22:51 Temperature Pulse Rate 54 L 60 56 L Pulse Rate [ From Monitor] Respiratory 26 H 15 22 Rate Blood Pressure 120/77 120/77 120/77 O2 Sat by Pulse 96 96 96 Oximetry 12/01/19 12/01/19 12/01/19 23:01 23:11 23:21 Temperature Pulse Rate 50 L 50 L 54 L Pulse Rate [ From Monitor] Respiratory 26 H 27 H 28 H Rate Blood Pressure 132/53 132/53 132/53 O2 Sat by Pulse 94 94 96 Oximetry 12/01/19 12/01/19 12/01/19 23:31 23:41 23:51 Temperature Pulse Rate 50 L 54 L 52 L Pulse Rate [ From Monitor] Respiratory 29 H 27 H 16 Rate Blood Pressure 132/53 132/53 132/53 O2 Sat by Pulse 94 94 98 Oximetry 12/02/19 12/02/19 12/02/19 00:00 00:01 00:11 Temperature 99.2 F Pulse Rate 52 L 59 L 57 L Pulse Rate [ 52 L From Monitor] Respiratory 21 26 H 26 H Rate Blood Pressure 125/79 132/53 O2 Sat by Pulse 96 93 96 Oximetry 12/02/19 12/02/19 12/02/19 00:21 00:31 00:41 Temperature Pulse Rate 79 66 75 Pulse Rate [ From Monitor] Respiratory 29 H 28 H 22 Rate Blood Pressure 132/53 132/53 132/53 O2 Sat by Pulse 95 96 94 Oximetry 12/02/19 12/02/19 12/02/19 00:51 01:01 01:11 Temperature Pulse Rate 55 L 61 52 L Pulse Rate [ From Monitor] Respiratory 15 29 H 29 H Rate Blood Pressure 132/53 132/53 122/77 O2 Sat by Pulse 98 92 96 Oximetry 12/02/19 12/02/19 12/02/19 01:21 01:31 01:41 Temperature Pulse Rate 51 L 51 L 50 L Pulse Rate [ From Monitor] Respiratory 23 38 H 31 H Rate Blood Pressure 122/77 122/77 122/77 O2 Sat by Pulse 95 96 92 Oximetry 12/02/19 12/02/19 12/02/19 01:51 02:01 02:11 Temperature Pulse Rate 47 L 56 L 55 L Pulse Rate [ From Monitor] Respiratory 23 28 H 27 H Rate Blood Pressure 122/77 122/77 122/77 O2 Sat by Pulse 95 96 96 Oximetry 12/02/19 12/02/19 12/02/19 02:21 02:31 02:41 Temperature Pulse Rate 60 56 L 62 Pulse Rate [ From Monitor] Respiratory 28 H 27 H 26 H Rate Blood Pressure 122/77 122/77 122/77 O2 Sat by Pulse 95 94 95 Oximetry 12/02/19 12/02/19 12/02/19 02:51 03:01 03:11 Temperature Pulse Rate 51 L 50 L 50 L Pulse Rate [ From Monitor] Respiratory 26 H 30 H 28 H Rate Blood Pressure 122/77 123/72 123/72 O2 Sat by Pulse 94 92 91 Oximetry 12/02/19 12/02/19 12/02/19 03:21 03:31 03:41 Temperature Pulse Rate 56 L 57 L 48 L Pulse Rate [ From Monitor] Respiratory 28 H 26 H 23 Rate Blood Pressure 123/72 123/72 123/72 O2 Sat by Pulse 93 93 95 Oximetry 12/02/19 12/02/19 12/02/19 03:51 04:00 04:01 Temperature 98.4 F Pulse Rate 50 L 70 48 L Pulse Rate [ 70 From Monitor] Respiratory 27 H 27 H 24 Rate Blood Pressure 123/72 123/72 O2 Sat by Pulse 94 92 79 L Oximetry 12/02/19 12/02/19 12/02/19 04:11 04:21 04:31 Temperature Pulse Rate 60 70 48 L Pulse Rate [ From Monitor] Respiratory H 22 28 H Rate Blood Pressure 121/47 121/47 121/47 O2 Sat by Pulse 95 95 93 Oximetry 12/02/19 12/02/19 12/02/19 04:41 04:51 05:01 Temperature Pulse Rate 50 L 53 L 62 Pulse Rate [ From Monitor] Respiratory 29 H 27 H 28 H Rate Blood Pressure 121/47 121/47 121/47 O2 Sat by Pulse 94 95 91 Oximetry 12/02/19 12/02/19 12/02/19 05:11 05:21 05:31 Temperature Pulse Rate 68 54 L 50 L Pulse Rate [ From Monitor] Respiratory 22 28 H 18 Rate Blood Pressure 121/47 121/47 121/47 O2 Sat by Pulse 97 96 98 Oximetry 12/02/19 12/02/19 12/02/19 05:41 05:51 06:01 Temperature Pulse Rate 60 52 L 68 Pulse Rate [ From Monitor] Respiratory H 23 25 H Rate Blood Pressure 121/47 121/47 123/77 O2 Sat by Pulse 95 97 92 Oximetry 12/02/19 12/02/19 12/02/19 06:11 06:21 06:31 Temperature Pulse Rate 49 L 60 73 Pulse Rate [ From Monitor] Respiratory 24 19 13 Rate Blood Pressure 123/77 123/77 123/77 O2 Sat by Pulse 96 97 98 Oximetry 12/02/19 12/02/19 06:41 06:51 Temperature Pulse Rate 72 78 Pulse Rate [ From Monitor] Respiratory 25 H 24 Rate Blood Pressure 123/77 123/77 O2 Sat by Pulse 93 94 Oximetry - Lab 12/02/19 05:06 12/02/19 05:06 Most recent lab results Calcium 8.3 mg/dL (8.4-10.2) L 12/02/19 05:06 Phosphorus 2.70 mg/dL (2.5-4.5) 12/01/19 05:31 Urine Creatinine 193.5 mg/dL (0.1-20.0) H 11/30/19 05:08 Urine Sodium 60 mmol/L 11/30/19 09:32 Urine Total Protein 50 mg/dL (5-11.8) H 11/30/19 05:08 Medications & Allergies - Medications Allergies/Adverse Reactions: Allergies No Known Allergies Allergy (Unverified 11/29/19 17:43) Home Medications: Home Medications Medication Instructions Recorded Confirmed Last Taken Type No Known Home Medications [No 11/30/19 11/30/19 Unknown History Reported Home Medications] Active Medications: Generic Name Dose Route Start Last Admin Trade Name Freq PRN Reason Stop Dose Admin Acetaminophen 650 mg 11/29/19 23:30 12/01/19 12:10 Tylenol PO 650 mg Q4H PRN Administration Fever >101 Apixaban 5 mg 12/01/19 11:00 12/01/19 21:09 Eliquis PO 5 mg Q12HR [place] Administration Ascorbic Acid 1,000 mg 12/01/19 11:00 12/01/19 21:09 Vitamin C PO 1,000 mg BID [place] Administration Cholecalciferol 5,000 unit 12/01/19 11:00 12/01/19 21:09 Vitamin D3 PO 5,000 unit DAILY [place] Administration Dexamethasone 6 mg 12/01/19 11:00 12/01/19 12:17 Decadron IV 12/10/19 10:01 6 mg Q24HR [place] Administration Sodium Chloride 1,000 mls @ 125 mls/hr 11/29/19 23:45 11/30/19 10:21 Nacl 0.9% 1000 Ml IV 125 mls/hr DIRECT [place] Administration Sodium Chloride 1,000 mls @ 75 mls/hr 11/30/19 14:30 12/02/19 06:04 Nacl 0.9% 1000 Ml IV 75 mls/hr DIRECT [place] Administration Ondansetron HCl 4 mg 11/29/19 23:31 Zofran IV Q8H PRN Nausea And Vomiting Zinc Sulfate 220 mg 12/01/19 11:00 12/01/19 12:17 Zinc Sulfate PO 220 mg QDAY [place] Administration
--- NOTE | 2019-12-02 09:11 | Progress Note ---
Assessment and Plan Cultures: 11/29/2019 blood culture: No growth today 11/30/2019 COVID-19 PCR: Positive A/P: 54-year-old male with hypertension with: #Fever: due to COVID. Resolved #Bilateral pneumonia secondary to COVID-19: D-dimer 516, ferritin 452, LDH 301, procalcitonin 0.07, CRP 1.5. #Acute hypoxemic respiratory failure: Currently on 3 L nasal cannula, wean off, on room air. #Acute kidney injury: Creatinine 2.0. Nephrology following. Resolving Recs: Exercise pulse oxymetry 6mwt - ordered Continue Dexamethasone 6 mg IV/PO daily day 2 of 10 No indication for Remdesivir as no sustained hypoxemia. Obtain interleukin-6 level - ordered Recommend weight-based anticoagulation prophylaxis trend daily ferritin, LDH, d-dimer, CRP - ordered stat today Will follow Elayne Lopez MD [facility] ([facility]) Office [phone] Subjective Date of service: 12/02/19 Principal diagnosis: COVID-19 PNEUMONIA Interval history: Feels better but still cough no fever for 12 h on room air Objective - Exam Narrative Exam: Physical Exam (reviewed in chart due to PPE conservation) Alert in NAD Head, Ears, Nose:NC atraumatic Eyes: limited due to PPE conservation strategy Neck: limited due to PPE conservation strategy Oral: limited due to PPE conservation strategy Cardiovascular: limited due to PPE conservation strategy Respiratory: limited due to PPE conservation strategy GI: limited due to PPE conservation strategy Musculoskeletal: limited due to PPE conservation strategy Skin: limited due to PPE conservation strategy Hem/Lymphatic: limited due to PPE conservation strategy Psych: no agitated Neurological: alert and oriented x3 - Constitutional Vitals: Vital Signs Temp Pulse Resp BP Pulse Ox 98.4 F 78 24 123/77 94 12/02/19 04:00 12/02/19 06:51 12/02/19 06:51 12/02/19 06:51 12/02/19 06:51 Temperature -Last 24 Hours Temperature 98.4 F Temperature 99.2 F Temperature 98.4 F Temperature 99.4 F Temperature 99.5 F Temperature 102.2 F - Labs CBC & Chem 7: 12/02/19 05:06 12/02/19 05:06 Labs: Abnormal lab results 12/01/19 12/02/1920 Range/Units 14:42 05:06 05:06 Plt Count 122 L (140-440) K/mm3 Lymph # 0.8 L (1.2-5.4) K/mm3 Seg Neutrophils % 81.9 H (40.0-70.0) % Glucose 181 H (75-100) mg/dL Lactic Acid 0.60 L (0.7-2.0) mmol/L Calcium 8.3 L (8.4-10.2) mg/dL
[2019-12-02 09:41] LABS: C-Reactive Protein 20.1 mg/dL (0.00-1.30)
[2019-12-02] MEDS: ZINC SULFATE 220 MG CAP PO SCH (09:45)
[2019-12-02] MEDS: APIXABAN 5 MG TAB PO SCH ×2 (09:45→22:02)
[2019-12-02] MEDS: ASCORBIC ACID 500 MG TAB PO SCH ×2 (09:45→22:02)
[2019-12-02] MEDS: CHOLECALCIFEROL (VIT D3) 5,000 UNIT TAB PO SCH (09:45)
[2019-12-02] MEDS: dexAMETHasone 4 MG/ML VIAL IV SCH (09:45)
--- NOTE | 2019-12-02 10:51 | Progress Note ---
Assessment and Plan Assessment and plan: Patient is a 54-year-old male with a past medical history hypertension presents to the hospital complaining of cough, fever, generalized body aches, and diarrhea for last 3 days. According to the patient the also had similar symptoms. However he denies nausea, vomiting, or shortness of breath. Patient with history of hypertension but out of his unknown BP medication x1 week. Patient denies known history of renal insufficiency but states his been over 1 year since he has had blood drawn. Patient reports that 2 of his coworkers have tested positive for coronavirus. He has been wearing a mask at his job. He has not been tested for coronavirus. His is here with similar symptoms. COVID- 19 testing was positive patient had been having fevers with T-max of 102.3 11/30: Still with intermittent fever, No increased oxygen need, await ID re- evaluation, may need antibiotics considering recurrent fever. Dexamethasone 6 mg daily started. ID is also initiating rem D severe and check an interleukin-6 level. No antibiotics at this time as patient procalcitonin is normal 12/01: We will continue dexamethasone. Monitor for 1 additional day will attempt to see if we can get ambulatory oxygen greater than 94% prior to discharge. Patient verbalized understanding. Renal function continues to improve. Outpatient nephrology follow-up. Sepsis COVID-19 Bilateral pneumonia likely secondary to coronavirus Secondary Coagulopathy JONH secondary to vasomotor nephropathy Acute hypoxemic respiratory failure Plan Continue supportive care Continue anticogulation Pre-and post Ambulatory Oxygen ID Input noted Nephrology consult Blood cx Follow Blood cultures Antibiotics per ID History Interval history: Patient seen and examined in no apparent respiratory distress at this time. Ambulatory oxygen saturation 93% on room air Hospitalist Physical - Physical exam Narrative exam: VITAL SIGNS: Reviewed. GENERAL: The patient appears normally developed, Vital signs as documented. HEAD: No signs of head trauma. EYES: Pupils are equal. Extraocular motions intact. EARS: Hearing grossly intact. MOUTH: Oropharynx is normal. NECK: No adenopathy, no JVD. CHEST: Chest with clear breath sounds bilaterally. No wheezes, rales, or rhonchi. CARDIAC: Regular rate and rhythm. S1 and S2, without murmurs, gallops, or rubs. VASCULAR: No Edema. Peripheral pulses normal and equal in all extremities. ABDOMEN: Soft, non tender and non distended. No rebound or guarding, and no masses palpated. Bowel Sounds normal. MUSCULOSKELETAL: Good range of motion of all major joints. Extremities without clubbing, cyanosis or edema. NEUROLOGIC EXAM: Alert and oriented x 3 No focal sensory or strength deficits. Speech normal. Follows commands. PSYCHIATRIC: Mood normal. SKIN: detail exam as documented in skin assessment - Constitutional Vitals: Temp Pulse Resp BP Pulse Ox 98.1 F 78 24 123/77 94 12/02/19 08:00 12/02/19 06:51 12/02/19 06:51 12/02/19 06:51 12/02/19 06:51 General appearance: Present: no acute distress, well-nourished. Absent: disheveled Results - Labs CBC & Chem 7: 12/02/19 05:06 12/02/19 05:06 Labs: Laboratory Last Values WBC 5.7 K/mm3 (4.5-11.0) 12/02/19 05:06 RBC 4.26 M/mm3 (3.65-5.03) 12/02/19 05:06 Hgb 13.3 gm/dl (11.8-15.2) 12/02/19 05:06 Hct 38.8 % (35.5-45.6) 12/02/19 05:06 MCV 91 fl (84-94) 12/02/19 05:06 MCH 31 pg (28-32) 12/02/19 05:06 MCHC 34 % (32-34) 12/02/19 05:06 RDW 13.7 % (13.2-15.2) 12/02/19 05:06 Plt Count 122 K/mm3 (140-440) L 12/02/19 05:06 Lymph % (Auto) 13.9 % (13.4-35.0) 12/02/19 05:06 [place] % (Auto) 4.0 % (0.0-7.3) 12/02/19 05:06 Eos % (Auto) 0.0 % (0.0-4.3) 12/02/19 05:06 Baso % (Auto) 0.2 % (0.0-1.8) 12/02/19 05:06 Lymph # 0.8 K/mm3 (1.2-5.4) L 12/02/19 05:06 [place]ardo # 0.2 K/mm3 (0.0-0.8) 12/02/19 05:06 Eos # 0.0 K/mm3 (0.0-0.4) 12/02/19 05:06 Baso # 0.0 K/mm3 (0.0-0.1) 12/02/19 05:06 Seg Neutrophils % 81.9 % (40.0-70.0) H 12/02/19 05:06 Seg Neutrophils # 4.7 K/mm3 (1.8-7.7) 12/02/19 05:06 D-Dimer 516.74 ng/mlDDU (0-234) H 11/29/19 22:59 Sodium 139 mmol/L (137-145) 12/02/19 05:06 Potassium 4.4 mmol/L (3.6-5.0) 12/02/19 05:06 Chloride 103.4 mmol/L (98-107) 12/02/19 05:06 Carbon Dioxide 22 mmol/L (22-30) 12/02/19 05:06 Anion Gap 18 mmol/L 12/02/19 05:06 BUN 14 mg/dL (9-20) 12/02/19 05:06 Creatinine 1.3 mg/dL (0.8-1.5) 12/02/19 05:06 Estimated GFR > 60 ml/min 12/02/19 05:06 BUN/Creatinine Ratio 11 % 12/02/19 05:06 Glucose 181 mg/dL (75-100) H 12/02/19 05:06 POC Glucose 92 (70-105) 12/01/19 12:35 Lactic Acid 0.60 mmol/L (0.7-2.0) L 12/01/19 14:42 Calcium 8.3 mg/dL (8.4-10.2) L 12/02/19 05:06 Phosphorus 2.70 mg/dL (2.5-4.5) 12/01/19 05:31 Ferritin 452.0 ng/mL (13.0-400.0) H 11/30/19 04:56 Total Bilirubin 0.60 mg/dL (0.1-1.2) 11/29/19 18:50 AST 39 units/L (5-40) 11/29/19 18:50 ALT 24 units/L (7-56) 11/29/19 18:50 Alkaline Phosphatase 69 units/L (35-129) 11/29/19 18:50 Lactate Dehydrogenase 138 units/L (91-180) 12/02/19 05:26 Total Creatine Kinase 435 units/L (55-170) H 11/30/19 10:45 C-Reactive Protein 20.10 mg/dL (0.00-1.30) H 12/02/19 05:26 Total Protein 7.7 g/dL (6.3-8.2) 11/29/19 18:50 Albumin 4.1 g/dL (3.9-5) 11/29/19 18:50 Albumin/Globulin Ratio 1.1 % 11/29/19 18:50 Procalcitonin 0.07 ng/mL (<0.15) 11/29/19 22:59 Urine Color Yellow (Yellow) 11/30/19 05:08 Urine Turbidity Clear (Clear) 11/30/19 05:08 Urine pH 5.0 (5.0-7.0) 11/30/19 05:08 Ur Specific [place] 1.016 (1.003-1.030) 11/30/19 05:08 Urine Protein 30 mg/dl mg/dL (Negative) 11/30/19 05:08 Urine Glucose (UA) Neg mg/dL (Negative) 11/30/19 05:08 Urine Ketones Neg mg/dL (Negative) 11/30/19 05:08 Urine Blood Mod (Negative) 11/30/19 05:08 Urine Nitrite Neg (Negative) 11/30/19 05:08 Urine Bilirubin Neg (Negative) 11/30/19 05:08 Urine Urobilinogen < 2.0 mg/dL (<2.0) 11/30/19 05:08 Ur Leukocyte Esterase Neg (Negative) 11/30/19 05:08 Urine WBC (Auto) 1.0 /HPF (0.0-6.0) 11/30/19 05:08 Urine RBC (Auto) 3.0 /HPF (0.0-6.0) 11/30/19 05:08 U Epithel Cells (Auto) < 1.0 /HPF (0-13.0) 11/30/19 05:08 Urine Mucus Few /HPF 11/30/19 05:08 Urine Eosinophils None seen (None Seen) 11/30/19 05:08 Urine Creatinine 193.5 mg/dL (0.1-20.0) H 11/30/19 05:08 Protein/Creatinin Ratio 0.26 11/30/19 05:08 Urine Sodium 60 mmol/L 11/30/19 09:32 Urine Total Protein 50 mg/dL (5-11.8) H 11/30/19 05:08 Coronavirus (PCR) Positive (Negative) A 11/30/19 08:04 Microbiology: Microbiology 11/29/19 19:13 Peripheral/Venous Blood Culture - Preliminary NO GROWTH AFTER 48 HOURS 11/29/19 19:13 Peripheral/Venous Blood Culture - Preliminary NO GROWTH AFTER 48 HOURS Felipe/IV: IV Catheter Type [Left Forearm Peripheral IV ] IV Catheter Type [Left INT / Saline Lock Antecubital] Active Medications - Current Medications Current Medications: Generic Name Dose Route Start Last Admin Trade Name Freq PRN Reason Stop Dose Admin Acetaminophen 650 mg 11/29/19 23:30 12/01/19 12:10 Tylenol PO 650 mg Q4H PRN Administration Fever >101 Apixaban 5 mg 12/01/19 11:00 12/02/19 09:45 Eliquis PO 5 mg Q12HR [place] Administration Ascorbic Acid 1,000 mg 12/01/19 11:00 12/02/19 09:45 Vitamin C PO 1,000 mg BID [place] Administration Cholecalciferol 5,000 unit 12/01/19 11:00 12/02/19 09:45 Vitamin D3 PO 5,000 unit DAILY [place] Administration Dexamethasone 6 mg 12/01/19 11:00 12/02/19 09:45 Decadron IV 12/10/19 10:01 6 mg Q24HR [place] Administration Sodium Chloride 1,000 mls @ 50 mls/hr 11/30/19 14:30 12/02/19 06:04 Nacl 0.9% 1000 Ml IV 75 mls/hr DIRECT [place] Administration Ondansetron HCl 4 mg 11/29/19 23:31 Zofran IV Q8H PRN Nausea And Vomiting Zinc Sulfate 220 mg 12/01/19 11:00 12/02/19 09:45 Zinc Sulfate PO 220 mg QDAY [place] Administration
[2019-12-03 05:23] LABS: Basophils % (Auto) 0.1 % (0.0-1.8); Hematocrit 42.2 % (35.5-45.6); Hemoglobin 14.3 gm/dl (11.8-15.2); Lymphocytes # (Auto) 0.8 K/mm3 (1.2-5.4); Lymphocytes % (Auto) 8.3 % (13.4-35.0); Mean Corpuscular HGB Conc 34 % (32-34); Mean Corpuscular Volume 91 fl (84-94); Monocytes # (Auto) 0.4 K/mm3 (0.0-0.8); Platelet Count 145 K/mm3 (140-440); Red Blood Count 4.63 M/mm3 (3.65-5.03); Red Cell Distribution Width 13.7 % (13.2-15.2)
[2019-12-03 05:46] LABS: BUN/Creatinine Ratio 13; Blood Urea Nitrogen 16 mg/dL (9-20); Calcium 8.8 mg/dL (8.4-10.2); Hemolysis Index 12
[2019-12-03] MEDS: CHOLECALCIFEROL (VIT D3) 5,000 UNIT TAB PO SCH (09:48)
[2019-12-03] MEDS: APIXABAN 5 MG TAB PO SCH ×2 (09:49→22:24)
[2019-12-03] MEDS: ZINC SULFATE 220 MG CAP PO SCH (09:49)
[2019-12-03] MEDS: ASCORBIC ACID 500 MG TAB PO SCH ×2 (09:49→22:24)
[2019-12-03] MEDS: dexAMETHasone 4 MG/ML VIAL IV SCH (09:49)
--- NOTE | 2019-12-03 10:20 | Progress Note ---
Assessment and Plan Assessment: Acute renal failure likely secondary to prerenal azotemia Sepsis COVID-19 POSITIVE Bilateral Pneumonia secondary to COVID-19 Plan: -Renal labs reviewed. Serum creatinine trend down to 1.2 today from 1.3 yesterday -Serum creatinine baseline unknown -S/P IV hydration -Urine lytes, protein reviewed. No urine eosinophils seen. -Renal US-pending -Renally dose medications -Strict I&O monitoring -Obtain daily weights -Avoid nephrotoxic agents -Continue to monitor -COVID-19 PNA, ID onboard Subjective Date of service: 12/03/19 Principal diagnosis: COVID-19 PNEUMONIA Interval history: Patient is COVID-19 positive. Chart reviewed and recommendations provided. Objective - Vital Signs Vital signs: Vital Signs - 12hr 12/02/19 12/02/19 12/02/19 23:01 23:31 23:46 Temperature 98.4 F Pulse Rate 71 53 L Pulse Rate [ From Monitor] Respiratory 25 H 37 H Rate Blood Pressure 137/47 137/47 O2 Sat by Pulse 95 93 Oximetry 12/03/19 12/03/19 12/03/19 00:00 00:01 01:00 Temperature Pulse Rate 54 L 52 L 53 L Pulse Rate [ 54 L From Monitor] Respiratory 32 H 35 H 32 H Rate Blood Pressure 123/84 113/69 O2 Sat by Pulse 98 91 89 Oximetry 12/03/19 12/03/19 12/03/19 02:00 03:01 04:00 Temperature 99.5 F Pulse Rate 55 L 60 52 L Pulse Rate [ 52 L From Monitor] Respiratory 32 H 22 30 H Rate Blood Pressure 105/68 65/38 O2 Sat by Pulse 93 95 95 Oximetry 12/03/19 12/03/19 12/03/19 04:01 04:13 05:01 Temperature 99.5 F Pulse Rate 52 L 57 L Pulse Rate [ From Monitor] Respiratory 27 H 31 H Rate Blood Pressure 94/68 110/65 O2 Sat by Pulse 94 95 Oximetry 12/03/19 12/03/19 12/03/19 06:01 07:01 08:00 Temperature Pulse Rate 98 H 65 80 Pulse Rate [ From Monitor] Respiratory 18 34 H Rate Blood Pressure 136/90 123/73 115/72 O2 Sat by Pulse 92 96 94 Oximetry 12/03/19 09:00 Temperature Pulse Rate Pulse Rate [ From Monitor] Respiratory Rate Blood Pressure 116/69 O2 Sat by Pulse 91 Oximetry - Lab 12/03/19 05:01 12/03/19 05:01 Most recent lab results Calcium 8.8 mg/dL (8.4-10.2) 12/03/19 05:01 Phosphorus 2.60 mg/dL (2.5-4.5) 12/03/19 05:01 Urine Creatinine 193.5 mg/dL (0.1-20.0) H 11/30/19 05:08 Urine Sodium 60 mmol/L 11/30/19 09:32 Urine Total Protein 50 mg/dL (5-11.8) H 11/30/19 05:08 Medications & Allergies - Medications Allergies/Adverse Reactions: Allergies No Known Allergies Allergy (Unverified 11/29/19 17:43) Home Medications: Home Medications Medication Instructions Recorded Confirmed Last Taken Type No Known Home Medications [No 11/30/19 11/30/19 Unknown History Reported Home Medications] Active Medications: Generic Name Dose Route Start Last Admin Trade Name Edilberto PRN Reason Stop Dose Admin Acetaminophen 650 mg 11/29/19 23:30 12/01/19 12:10 Tylenol PO 650 mg Q4H PRN Administration Fever >101 Apixaban 5 mg 12/01/19 11:00 12/03/19 09:49 Eliquis PO 5 mg Q12HR [place] Administration Ascorbic Acid 1,000 mg 12/01/19 11:00 12/03/19 09:49 Vitamin C PO 1,000 mg BID [place] Administration Cholecalciferol 5,000 unit 12/01/19 11:00 12/03/19 09:48 Vitamin D3 PO 5,000 unit DAILY [place] Administration Dexamethasone 6 mg 12/01/19 11:00 12/03/19 09:49 Decadron IV 12/10/19 10:01 6 mg Q24HR [place] Administration Ondansetron HCl 4 mg 11/29/19 23:31 Zofran IV Q8H PRN Nausea And Vomiting Zinc Sulfate 220 mg 12/01/19 11:00 12/03/19 09:49 Zinc Sulfate PO 220 mg QDAY [place] Administration
[2019-12-03] MEDS: ACETAMINOPHEN 325 MG TAB PO PRN (10:37)
--- NOTE | 2019-12-03 11:42 | Cat Scan Report ---
CTA CHEST WITH IV CONTRAST INDICATION: Shortness of breath. TECHNIQUE: Axial CT images were obtained through the chest after injection of 100 cc Omnipaque 350 IV contrast. 3 plane MIP reconstructions were produced. All CT scans at this location are performed using CT dose reduction for ALARA by means of automated exposure control. COMPARISON: 2 views of the chest from 11/29/2019. FINDINGS: PULMONARY ARTERIES: Well-opacified without distinct thromboemboli. AORTA AND ARTERIES: No acute abnormality. MEDIASTINUM: No significant abnormality of the thyroid gland, airways or heart. No mass or lymphadeno sondra. LUNGS: Patchy bilateral groundglass opacities are present throughout the lungs, many of which are in a peripheral/subpleural location. No pneumothorax, pleural effusion or other significant abnormality. ADDITIONAL FINDINGS: None. UPPER ABDOMEN: Multiple hepatic cysts measure up to 1.6 cm along the medial segment of the left hepat ic lobe. There are multiple nonobstructive bilateral renal stones. No additional significant abnormal ity. BONES: No acute abnormality. Degenerative changes are seen throughout the spine. IMPRESSION: 1. No CT evidence for pulmonary embolism. 2. Findings consistent with bilateral pneumonia. Considerations include atypical viral type pneumonia . Please correlate with the clinical findings. Signer Name: Benjamin Toney MD Signed: 12/03/2019 11:37 AM Workstation Name: [id number]
--- NOTE | 2019-12-03 13:44 | Progress Note ---
Assessment and Plan Cultures: 11/29/2019 blood culture: No growth today 11/30/2019 COVID-19 PCR: Positive A/P: 54-year-old male with hypertension with: #Fever: due to COVID. Remains with fever #Bilateral pneumonia secondary to COVID-19: D-dimer 516-->644, ferritin 452-->845, LDH 301-->138, procalcitonin 0.07, CRP 1.5. #Acute hypoxemic respiratory failure: Currently on 3 L nasal cannula, wean off, on room air 92%, ambulating 93% #Acute kidney injury: Creatinine 2.0. Nephrology following. Resolving Recs: Exercise pulse oxymetry 6mwt - tomorrow adn if >94% ok to d/c on dexamethasone 6 mg po qday to complete 10 days Continue Dexamethasone 6 mg IV/PO daily day 3 of 10 No indication for Remdesivir as no sustained hypoxemia. Obtain interleukin-6 level - ordered trend daily ferritin, LDH, d-dimer, CRP - ordered stat today Will follow Elayne Lopez MD [facility] ([facility]) Office [phone] Subjective Date of service: 12/03/19 Principal diagnosis: COVID-19 PNEUMONIA Interval history: Feels better but still cough and fever 102 on room air Objective - Exam Narrative Exam: Physical Exam (reviewed in chart due to PPE conservation) Alert in NAD Head, Ears, Nose:NC atraumatic Eyes: limited due to PPE conservation strategy Neck: limited due to PPE conservation strategy Oral: limited due to PPE conservation strategy Cardiovascular: limited due to PPE conservation strategy Respiratory: limited due to PPE conservation strategy GI: limited due to PPE conservation strategy Musculoskeletal: limited due to PPE conservation strategy Skin: limited due to PPE conservation strategy Hem/Lymphatic: limited due to PPE conservation strategy Psych: no agitated Neurological: alert and oriented x3 - Constitutional Vitals: Vital Signs Temp Pulse Resp BP Pulse Ox 102.4 F H 77 28 H 111/69 92 12/03/19 11:14 12/03/19 11:14 12/03/19 11:14 12/03/19 11:14 12/03/19 11:14 Temperature -Last 24 Hours Temperature 102.4 F Temperature 102.6 F Temperature 99.5 F Temperature 99.5 F Temperature 98.4 F Temperature 98.8 F Temperature 98.5 F - Labs CBC & Chem 7: 12/03/19 05:01 12/03/19 05:01 Labs: Abnormal lab results 12/02/19 12/02/19 12/03/19 Range/Units 12:40 12:40 05:01 Lymph % (Auto) 8.3 L (13.4-35.0) % Lymph # 0.8 L (1.2-5.4) K/mm3 Seg Neutrophils % 87.6 H (40.0-70.0) % Seg Neutrophils # 8.4 H (1.8-7.7) K/mm3 D-Dimer 644.13 H (0-234) ng/mlDDU Glucose (75-100) mg/dL Ferritin 845.3 H (13.0-400.0) ng/mL 12/03/19 Range/Units 05:01 Lymph % (Auto) (13.4-35.0) % Lymph # (1.2-5.4) K/mm3 Seg Neutrophils % (40.0-70.0) % Seg Neutrophils # (1.8-7.7) K/mm3 D-Dimer (0-234) ng/mlDDU Glucose 125 H (75-100) mg/dL Ferritin (13.0-400.0) ng/mL
--- NOTE | 2019-12-03 14:40 | Progress Note ---
Assessment and Plan Assessment and plan: Patient is a 54-year-old male with a past medical history hypertension presents to the hospital complaining of cough, fever, generalized body aches, and diarrhea for last 3 days. According to the patient the also had similar symptoms. However he denies nausea, vomiting, or shortness of breath. Patient with history of hypertension but out of his unknown BP medication x1 week. Patient denies known history of renal insufficiency but states his been over 1 year since he has had blood drawn. Patient reports that 2 of his coworkers have tested positive for coronavirus. He has been wearing a mask at his job. He has not been tested for coronavirus. His is here with similar symptoms. COVID- 19 testing was positive patient had been having fevers with T-max of 102.3 11/30: Still with intermittent fever, No increased oxygen need, await ID re- evaluation, may need antibiotics considering recurrent fever. Dexamethasone 6 mg daily started. ID is also initiating rem D severe and check an interleukin-6 level. No antibiotics at this time as patient procalcitonin is normal 12/01: We will continue dexamethasone. Monitor for 1 additional day will attempt to see if we can get ambulatory oxygen greater than 94% prior to discharge. Patient verbalized understanding. Renal function continues to improve. Outpatient nephrology follow-up. 12/02: Continue current therapy, discussed plan of care as it relates to oxygen with the patient, continue dexamethasone. Anticipate discharge in am if Spo2>94% Sepsis COVID-19 Bilateral pneumonia likely secondary to coronavirus Secondary Coagulopathy JONH secondary to vasomotor nephropathy Acute hypoxemic respiratory failure Plan Continue supportive care Continue anticogulation Pre-and post Ambulatory Oxygen ID Input noted Nephrology consult Blood cx Follow Blood cultures Antibiotics per ID History Interval history: Patient seen and examined in no apparent respiratory distress at this time. fever again noted today, patient in no distress Hospitalist Physical - Physical exam Narrative exam: VITAL SIGNS: Reviewed. GENERAL: The patient appears normally developed, Vital signs as documented. HEAD: No signs of head trauma. EYES: Pupils are equal. Extraocular motions intact. EARS: Hearing grossly intact. MOUTH: Oropharynx is normal. NECK: No adenopathy, no JVD. CHEST: Chest with clear breath sounds bilaterally. No wheezes, rales, or rhonchi. CARDIAC: Regular rate and rhythm. S1 and S2, without murmurs, gallops, or rubs. VASCULAR: No Edema. Peripheral pulses normal and equal in all extremities. ABDOMEN: Soft, non tender and non distended. No rebound or guarding, and no masses palpated. Bowel Sounds normal. MUSCULOSKELETAL: Good range of motion of all major joints. Extremities without clubbing, cyanosis or edema. NEUROLOGIC EXAM: Alert and oriented x 3 No focal sensory or strength defic its. Speech normal. Follows commands. PSYCHIATRIC: Mood normal. SKIN: detail exam as documented in skin assessment - Constitutional Vitals: Temp Pulse Resp BP Pulse Ox 102.4 F H 77 28 H 111/69 92 12/03/19 11:14 12/03/19 11:14 12/03/19 11:14 12/03/19 11:14 12/03/19 11:14 General appearance: Present: no acute distress, well-nourished. Absent: disheveled Results - Labs CBC & Chem 7: 12/03/19 05:01 12/03/19 05:01 Labs: Laboratory Last Values WBC 9.6 K/mm3 (4.5-11.0) 12/03/19 05:01 RBC 4.63 M/mm3 (3.65-5.03) 12/03/19 05:01 Hgb 14.3 gm/dl (11.8-15.2) 12/03/19 05:01 Hct 42.2 % (35.5-45.6) 12/03/19 05:01 MCV 91 fl (84-94) 12/03/19 05:01 MCH 31 pg (28-32) 12/03/19 05:01 MCHC 34 % (32-34) 12/03/19 05:01 RDW 13.7 % (13.2-15.2) 12/03/19 05:01 Plt Count 145 K/mm3 (140-440) 12/03/19 05:01 Lymph % (Auto) 8.3 % (13.4-35.0) L 12/03/19 05:01 [place] % (Auto) 4.0 % (0.0-7.3) 12/03/19 05:01 Eos % (Auto) 0.0 % (0.0-4.3) 12/03/19 05:01 Baso % (Auto) 0.1 % (0.0-1.8) 12/03/19 05:01 Lymph # 0.8 K/mm3 (1.2-5.4) L 12/03/19 05:01 [place] # 0.4 K/mm3 (0.0-0.8) 12/03/19 05:01 Eos # 0.0 K/mm3 (0.0-0.4) 12/03/19 05:01 Baso # 0.0 K/mm3 (0.0-0.1) 12/03/19 05:01 Seg Neutrophils % 87.6 % (40.0-70.0) H 12/03/19 05:01 Seg Neutrophils # 8.4 K/mm3 (1.8-7.7) H 12/03/19 05:01 D-Dimer 644.13 ng/mlDDU (0-234) H 12/02/19 12:40 Sodium 140 mmol/L (137-145) 12/03/19 05:01 Potassium 4.4 mmol/L (3.6-5.0) 12/03/19 05:01 Chloride 102.2 mmol/L (98-107) 12/03/19 05:01 Carbon Dioxide 25 mmol/L (22-30) 12/03/19 05:01 Anion Gap 17 mmol/L 12/03/19 05:01 BUN 16 mg/dL (9-20) 12/03/19 05:01 Creatinine 1.2 mg/dL (0.8-1.5) 12/03/19 05:01 Estimated GFR > 60 ml/min 12/03/19 05:01 BUN/Creatinine Ratio 13 % 12/03/19 05:01 Glucose 125 mg/dL (75-100) H 12/03/19 05:01 POC Glucose 92 (70-105) 12/01/19 12:35 Lactic Acid 0.60 mmol/L (0.7-2.0) L 12/01/19 14:42 Calcium 8.8 mg/dL (8.4-10.2) 12/03/19 05:01 Phosphorus 2.60 mg/dL (2.5-4.5) 12/03/19 05:01 Ferritin 845.3 ng/mL (13.0-400.0) H 12/02/19 12:40 Total Bilirubin 0.60 mg/dL (0.1-1.2) 11/29/19 18:50 AST 39 units/L (5-40) 11/29/19 18:50 ALT 24 units/L (7-56) 11/29/19 18:50 Alkaline Phosphatase 69 units/L (35-129) 11/29/19 18:50 Lactate Dehydrogenase 138 units/L (91-180) 12/02/19 05:26 Total Creatine Kinase 435 units/L (55-170) H 11/30/19 10:45 C-Reactive Protein 20.10 mg/dL (0.00-1.30) H 12/02/19 05:26 Total Protein 7.7 g/dL (6.3-8.2) 11/29/19 18:50 Albumin 4.1 g/dL (3.9-5) 11/29/19 18:50 Albumin/Globulin Ratio 1.1 % 11/29/19 18:50 Procalcitonin 0.07 ng/mL (<0.15) 11/29/19 22:59 Urine Color Yellow (Yellow) 11/30/19 05:08 Urine Turbidity Clear (Clear) 11/30/19 05:08 Urine pH 5.0 (5.0-7.0) 11/30/19 05:08 Ur Specific [place] 1.016 (1.003-1.030) 11/30/19 05:08 Urine Protein 30 mg/dl mg/dL (Negative) 11/30/19 05:08 Urine Glucose (UA) Neg mg/dL (Negative) 11/30/19 05:08 Urine Ketones Neg mg/dL (Negative) 11/30/19 05:08 Urine Blood Mod (Negative) 11/30/19 05:08 Urine Nitrite Neg (Negative) 11/30/19 05:08 Urine Bilirubin Neg (Negative) 11/30/19 05:08 Urine Urobilinogen < 2.0 mg/dL (<2.0) 11/30/19 05:08 Ur Leukocyte Esterase Neg (Negative) 11/30/19 05:08 Urine WBC (Auto) 1.0 /HPF (0.0-6.0) 11/30/19 05:08 Urine RBC (Auto) 3.0 /HPF (0.0-6.0) 11/30/19 05:08 U Epithel Cells (Auto) < 1.0 /HPF (0-13.0) 11/30/19 05:08 Urine Mucus Few /HPF 11/30/19 05:08 Urine Eosinophils None seen (None Seen) 11/30/19 05:08 Urine Creatinine 193.5 mg/dL (0.1-20.0) H 11/30/19 05:08 Protein/Creatinin Ratio 0.26 11/30/19 05:08 Urine Sodium 60 mmol/L 11/30/19 09:32 Urine Total Protein 50 mg/dL (5-11.8) H 11/30/19 05:08 Coronavirus (PCR) Positive (Negative) A 11/30/19 08:04 Microbiology: Microbiology 11/29/19 19:13 Peripheral/Venous Blood Culture - Preliminary NO GROWTH AFTER 72 HOURS 11/29/19 19:13 Peripheral/Venous Blood Culture - Preliminary NO GROWTH AFTER 72 HOURS Felipe/IV: IV Catheter Type [Left Forearm Peripheral IV ] IV Catheter Type [Left INT / Saline Lock Antecubital] Active Medications - Current Medications Current Medications: Generic Name Dose Route Start Last Admin Trade Name Freq PRN Reason Stop Dose Admin Acetaminophen 650 mg 11/29/19 23:30 12/03/19 10:37 Tylenol PO 650 mg Q4H PRN Administration Fever >101 Apixaban 5 mg 12/01/19 11:00 12/03/19 09:49 Eliquis PO 5 mg Q12HR [place] Administration Ascorbic Acid 1,000 mg 12/01/19 11:00 12/03/19 09:49 Vitamin C PO 1,000 mg BID [place] Administration Cholecalciferol 5,000 unit 12/01/19 11:00 12/03/19 09:48 Vitamin D3 PO 5,000 unit DAILY [place] Administration Dexamethasone 6 mg 12/01/19 11:00 12/03/19 09:49 Decadron IV 12/10/19 10:01 6 mg Q24HR [place] Administration Ondansetron HCl 4 mg 11/29/19 23:31 Zofran IV Q8H PRN Nausea And Vomiting Zinc Sulfate 220 mg 12/01/19 11:00 12/03/19 09:49 Zinc Sulfate PO 220 mg QDAY [place]WTON Administration
[2019-12-03 17:08] LABS: C-Reactive Protein 3.1 mg/dL (0.00-1.30)
[2019-12-04] MEDS: ACETAMINOPHEN 325 MG TAB PO PRN (05:17)
[2019-12-04 05:39] LABS: Basophils % (Auto) 0.2 % (0.0-1.8); Hematocrit 42.4 % (35.5-45.6); Hemoglobin 14.7 gm/dl (11.8-15.2); Lymphocytes # (Auto) 0.7 K/mm3 (1.2-5.4); Lymphocytes % (Auto) 6.6 % (13.4-35.0); Mean Corpuscular HGB Conc 35 % (32-34); Mean Corpuscular Volume 91 fl (84-94); Monocytes # (Auto) 0.6 K/mm3 (0.0-0.8); Monocytes % (Auto) 5.4 % (0.0-7.3); Platelet Count 203 K/mm3 (140-440); Red Blood Count 4.65 M/mm3 (3.65-5.03); Red Cell Distribution Width 14.2 % (13.2-15.2)
[2019-12-04 05:59] LABS: BUN/Creatinine Ratio 15; Blood Urea Nitrogen 20 mg/dL (9-20); Calcium 8.7 mg/dL (8.4-10.2); Hemolysis Index 82
[2019-12-04] MEDS: ASCORBIC ACID 500 MG TAB PO SCH ×2 (10:01→22:18)
[2019-12-04] MEDS: ZINC SULFATE 220 MG CAP PO SCH (10:01)
[2019-12-04] MEDS: APIXABAN 5 MG TAB PO SCH ×2 (10:01→22:18)
--- NOTE | 2019-12-04 11:20 | Progress Note ---
Assessment and Plan Cultures: 11/29/2019 blood culture: No growth today 11/30/2019 COVID-19 PCR: Positive A/P: 54-year-old male with hypertension with: #Fever: due to COVID. Remains with fever #Bilateral pneumonia secondary to COVID-19: D-dimer 516-->644, ferritin 452-->845, LDH 301-->138, procalcitonin 0.07, CRP 1.5. #Acute hypoxemic respiratory failure: Currently on 3 L nasal cannula, wean off, on room air sats remains <93%, ambulating 90% #Acute kidney injury: Creatinine 2.0. Nephrology following. Resolving Recs: start remdesivir 200 mg IVx 1 followed by 100 mg IV qday x 4 doses - consented, order placed start tociluzimab 8 mg IV x 1 start solumedrol 40 mg Iv q hour Pulmonary consult Obtain interleukin-6 level - ordered trend daily ferritin, LDH, d-dimer, CRP - ordered stat today Will follow Elayne Lopez MD [facility] ([facility]) Office [phone] Subjective Date of service: 12/04/19 Principal diagnosis: COVID-19 PNEUMONIA Interval history: Feels better but still cough Objective - Exam Narrative Exam: Physical Exam (reviewed in chart due to PPE conservation) Alert in NAD Head, Ears, Nose:NC atraumatic Eyes: limited due to PPE conservation strategy Neck: limited due to PPE conservation strategy Oral: limited due to PPE conservation strategy Cardiovascular: limited due to PPE conservation strategy Respiratory: limited due to PPE conservation strategy GI: limited due to PPE conservation strategy Musculoskeletal: limited due to PPE conservation strategy Skin: limited due to PPE conservation strategy Hem/Lymphatic: limited due to PPE conservation strategy Psych: no agitated Neurological: alert and oriented x3 - Constitutional Vitals: Vital Signs Temp Pulse Resp BP Pulse Ox 102.7 F H 75 20 140/82 91 12/04/19 04:56 12/04/19 04:56 12/04/19 05:17 12/04/19 04:56 12/04/19 04:56 Temperature -Last 24 Hours Temperature 102.7 F Temperature 98.4 F Temperature 98.5 F - Labs CBC & Chem 7: 12/04/19 04:53 12/04/19 04:53 Labs: Abnormal lab results 12/03/19 12/03/19 12/03/19 Range/Units 16:09 16:09 16:09 MCHC (32-34) % Lymph % (Auto) (13.4-35.0) % Lymph # (1.2-5.4) K/mm3 Seg Neutrophils % (40.0-70.0) % Seg Neutrophils # (1.8-7.7) K/mm3 D-Dimer 435.54 H (0-234) ng/mlDDU Potassium (3.6-5.0) mmol/L Glucose (75-100) mg/dL Ferritin 863.7 H (13.0-400.0) ng/mL Lactate Dehydrogenase 386 H (91-180) units/L C-Reactive Protein 3.10 H (0.00-1.30) mg/dL 12/04/19 12/04/19 Range/Units 04:53 04:53 MCHC 35 H (32-34) % Lymph % (Auto) 6.6 L (13.4-35.0) % Lymph # 0.7 L (1.2-5.4) K/mm3 Seg Neutrophils % 87.8 H (40.0-70.0) % Seg Neutrophils # 9.4 H (1.8-7.7) K/mm3 D-Dimer (0-234) ng/mlDDU Potassium 5.1 H (3.6-5.0) mmol/L Glucose 101 H (75-100) mg/dL Ferritin (13.0-400.0) ng/mL Lactate Dehydrogenase (91-180) units/L C-Reactive Protein (0.00-1.30) mg/dL
[2019-12-04] MEDS ORDERED: REMDESIVIR 100 MG in SODIUM CHLORIDE 0.9% 250ML 250 ML IV SCH (12:00)
[2019-12-04] MEDS ORDERED: dexAMETHasone 20 MG/5 ML VIAL IV SCH (12:00)
[2019-12-04] MEDS ORDERED: REMDESIVIR 200 MG in SODIUM CHLORIDE 0.9% 250ML 250 ML IV ONE (13:00)
[2019-12-04] MEDS: dexAMETHasone 4 MG/ML VIAL IV SCH (13:15)
[2019-12-04] MEDS: CHOLECALCIFEROL (VIT D3) 5,000 UNIT TAB PO SCH (13:17)
[2019-12-04] MEDS: methylPREDNISolone Sod Succinate 40 MG/1 ML INJ IV SCH ×2 (13:27→22:17)
[2019-12-04 13:29] LABS: C-Reactive Protein 5.3 mg/dL (0.00-1.30)
--- NOTE | 2019-12-04 14:21 | Progress Note ---
Assessment and Plan Assessment: Acute Kidney Injury likely secondary to prerenal azotemia, CLAUDIA, r/o obstruction Sepsis COVID-19 POSITIVE Bilateral Pneumonia secondary to COVID-19 Hyperkalemia Plan: -Renal labs reviewed, SCr level was 1.3 today, yesterday's SCr level was 1.2 -Serum creatinine baseline unknown -Urine lytes, protein reviewed. No urine eosinophils seen -S/p CTA chest IV contrast on 12/03/19 - negative of PE, findings consistent with Bilateral PNA -Start 0.9% NS infusion at 50 ml/hr given risk of CLAUDAI from CTA Chest on 12/03/19 -ID on board for COVID-19 PNA, on Tocilizumab, Remdesivir, steroids, f/u recs -Pt slightly hyperkalemic today (K+ 5.1), recommend low potassium diet -Renal US pending -Renally dose medications -Strict I&O -Pt reports urinating ok in toilet, but hasn't been using Urinal for measurement -Renal plan d/w Dr Domínguez Subjective Date of service: 12/04/19 Principal diagnosis: COVID-19 PNEUMONIA Interval history: Pt on isolation for COVID-19, pt not examined to limit direct contact/resources, reviewed medical chart, labs, and notes. I spoke with pt via his room phone, pt denies shortness of breath and BLE swelling, no specific complaints voiced. Pt also reports urinating ok, but hasn't been saving his urine for measurement. Pt was febrile today, most recent documented temp was 100.3F today at 11:28 am. Objective - Vital Signs Vital signs: Vital Signs - 12hr 12/04/19 12/04/19 12/04/19 04:56 05:17 11:28 Temperature 102.7 F H 100.3 F H Pulse Rate 75 78 Respiratory 20 20 20 Rate Blood Pressure 140/82 91/68 O2 Sat by Pulse 91 95 Oximetry - Lab 12/04/19 04:53 12/04/19 04:53 Most recent lab results Calcium 8.7 mg/dL (8.4-10.2) 12/04/19 04:53 Phosphorus 2.60 mg/dL (2.5-4.5) 12/03/19 05:01 Urine Creatinine 193.5 mg/dL (0.1-20.0) H 11/30/19 05:08 Urine Sodium 60 mmol/L 11/30/19 09:32 Urine Total Protein 50 mg/dL (5-11.8) H 11/30/19 05:08 Medications & Allergies - Medications Allergies/Adverse Reactions: Allergies No Known Allergies Allergy (Unverified 11/29/19 17:43) Home Medications: Home Medications Medication Instructions Recorded Confirmed Last Taken Type No Known Home Medications [No 11/30/19 11/30/19 Unknown History Reported Home Medications] Active Medications: Generic Name Dose Route Start Last Admin Trade Name Freq PRN Reason Stop Dose Admin Acetaminophen 650 mg 11/29/19 23:30 12/04/19 05:17 Tylenol PO 650 mg Q4H PRN Administration Fever >101 Apixaban 5 mg 12/01/19 11:00 12/04/19 10:01 Eliquis PO 5 mg Q12HR [place] Administration Ascorbic Acid 1,000 mg 12/01/19 11:00 12/04/19 10:01 Vitamin C PO 1,000 mg BID [place] Administration Cholecalciferol 5,000 unit 12/01/19 11:00 12/04/19 13:17 Vitamin D3 PO 5,000 unit DAILY [place] Administration REMDESIVIR 100 mg/ Sodium 250 mls @ 500 mls/hr 12/05/19 10:00 Chloride IV 12/08/19 10:29 Q24HR [place] TOCILIZUMAB 400 mg/ Sodium 120 mls @ 120 mls/hr 12/04/19 16:00 Chloride IV 12/04/19 16:59 ONCE ONE Methylprednisolone Sodium Succinate 40 mg 12/04/19 14:00 12/04/19 13:27 Solu-Medrol IV 40 mg Q8HR [place] Administration Ondansetron HCl 4 mg 11/29/19 23:31 Zofran IV Q8H PRN Nausea And Vomiting Sodium Chloride 50 ml 12/04/19 14:00 Nacl 0.9% IV 12/08/19 11:01 Q24HR@1100 [facility]
[2019-12-04] MEDS: SODIUM CHLORIDE 0.9% 50 ML IVPB IV SCH (14:46)
--- NOTE | 2019-12-04 15:34 | Progress Note ---
Assessment and Plan Assessment and plan: Patient is a 54-year-old male with a past medical history hypertension presents to the hospital complaining of cough, fever, generalized body aches, and diarrhea for last 3 days. According to the patient the also had similar symptoms. However he denies nausea, vomiting, or shortness of breath. Patient with history of hypertension but out of his unknown BP medication x1 week. Patient denies known history of renal insufficiency but states his been over 1 year since he has had blood drawn. Patient reports that 2 of his coworkers have tested positive for coronavirus. He has been wearing a mask at his job. He has not been tested for coronavirus. His is here with similar symptoms. COVID- 19 testing was positive patient had been having fevers with T-max of 102.3 11/30: Still with intermittent fever, No increased oxygen need, await ID re- evaluation, may need antibiotics considering recurrent fever. Dexamethasone 6 mg daily started. ID is also initiating rem D severe and check an interleukin-6 level. No antibiotics at this time as patient procalcitonin is normal 12/01: We will continue dexamethasone. Monitor for 1 additional day will attempt to see if we can get ambulatory oxygen greater than 94% prior to discharge. Patient verbalized understanding. Renal function continues to improve. Outpatient nephrology follow-up. 12/02: Continue current therapy, discussed plan of care as it relates to oxygen with the patient, continue dexamethasone. Anticipate discharge in am if Spo2>94% 12/03: We will start patient on oxygen as oxygen saturation with ambulation is between 90 to 91%. continue Remdesivir as started by ID, plan os for 200mg iv x 1 AND THEN 100MG IV Daily x 4 doses, consent was obtained by ID. also patient changed to Solumderol 40mg, Interlukin 6 still pending,. Tocilzuimab was also given today. Hypoxia persist and plan discussed with he patient in detail Sepsis COVID-19 Bilateral pneumonia likely secondary to coronavirus Acute hypoxemic respiratory failure Secondary Coagulopathy JONH secondary to vasomotor nephropathy Acute hypoxemic respiratory failure Plan Continue supportive care Continue anticogulation Daily oxygen check. Patient will likely need to be on oxygen for some time ID Input noted Nephrology consult Blood cx Follow Blood cultures Antibiotics per ID History Interval history: Patient seen and examined in no apparent respiratory distress at this time. fever again noted today, patient in no distress, patient also noted to have oxygen saturation of 91% with ambulation. Hospitalist Physical - Physical exam Narrative exam: VITAL SIGNS: Reviewed. GENERAL: The patient appears normally developed, Vital signs as documented. HEAD: No signs of head trauma. EYES: Pupils are equal. Extraocular motions intact. EARS: Hearing grossly intact. MOUTH: Oropharynx is normal. NECK: No adenopathy, no JVD. CHEST: Chest with clear breath sounds bilaterally. No wheezes, rales, or rhonchi. CARDIAC: Regular rate and rhythm. S1 and S2, without murmurs, gallops, or rubs. VASCULAR: No Edema. Peripheral pulses normal and equal in all extremities. ABDOMEN: Soft, non tender and non distended. No rebound or guarding, and no masses palpated. Bowel Sounds normal. MUSCULOSKELETAL: Good range of motion of all major joints. Extremities without clubbing, cyanosis or edema. NEUROLOGIC EXAM: Alert and oriented x 3 No focal sensory or strength deficits. Speech normal. Follows commands. PSYCHIATRIC: Mood normal. SKIN: detail exam as documented in skin assessment - Constitutional Vitals: Temp Pulse Resp BP Pulse Ox 100.3 F H 78 20 91/68 95 12/04/19 11:28 12/04/19 11:28 12/04/19 11:28 12/04/19 11:28 12/04/19 11:28 General appearance: Present: no acute distress, well-nourished. Absent: disheveled Results - Labs CBC & Chem 7: 12/04/19 04:53 12/04/19 04:53 Labs: Laboratory Last Values WBC 10.7 K/mm3 (4.5-11.0) 12/04/19 04:53 RBC 4.65 M/mm3 (3.65-5.03) 12/04/19 04:53 Hgb 14.7 gm/dl (11.8-15.2) 12/04/19 04:53 Hct 42.4 % (35.5-45.6) 12/04/19 04:53 MCV 91 fl (84-94) 12/04/19 04:53 MCH 32 pg (28-32) 12/04/19 04:53 MCHC 35 % (32-34) H 12/04/19 04:53 RDW 14.2 % (13.2-15.2) 12/04/19 04:53 Plt Count 203 K/mm3 (140-440) 12/04/19 04:53 Lymph % (Auto) 6.6 % (13.4-35.0) L 12/04/19 04:53 [place] % (Auto) 5.4 % (0.0-7.3) 12/04/19 04:53 Eos % (Auto) 0.0 % (0.0-4.3) 12/04/19 04:53 Baso % (Auto) 0.2 % (0.0-1.8) 12/04/19 04:53 Lymph # 0.7 K/mm3 (1.2-5.4) L 12/04/19 04:53 [place] # 0.6 K/mm3 (0.0-0.8) 12/04/19 04:53 Eos # 0.0 K/mm3 (0.0-0.4) 12/04/19 04:53 Baso # 0.0 K/mm3 (0.0-0.1) 12/04/19 04:53 Seg Neutrophils % 87.8 % (40.0-70.0) H 12/04/19 04:53 Seg Neutrophils # 9.4 K/mm3 (1.8-7.7) H 12/04/19 04:53 D-Dimer 536.40 ng/mlDDU (0-234) H 12/04/19 12:44 Sodium 138 mmol/L (137-145) 12/04/19 04:53 Potassium 5.1 mmol/L (3.6-5.0) H 12/04/19 04:53 Chloride 98.9 mmol/L (98-107) 12/04/19 04:53 Carbon Dioxide 23 mmol/L (22-30) 12/04/19 04:53 Anion Gap 21 mmol/L 12/04/19 04:53 BUN 20 mg/dL (9-20) 12/04/19 04:53 Creatinine 1.3 mg/dL (0.8-1.5) 12/04/19 04:53 Estimated GFR > 60 ml/min 12/04/19 04:53 BUN/Creatinine Ratio 15 % 12/04/19 04:53 Glucose 101 mg/dL (75-100) H 12/04/19 04:53 POC Glucose 92 (70-105) 12/01/19 12:35 Lactic Acid 0.60 mmol/L (0.7-2.0) L 12/01/19 14:42 Calcium 8.7 mg/dL (8.4-10.2) 12/04/19 04:53 Phosphorus 2.60 mg/dL (2.5-4.5) 12/03/19 05:01 Ferritin 940.7 ng/mL (13.0-400.0) H 12/04/19 12:44 Total Bilirubin 0.60 mg/dL (0.1-1.2) 11/29/19 18:50 AST 39 units/L (5-40) 11/29/19 18:50 ALT 24 units/L (7-56) 11/29/19 18:50 Alkaline Phosphatase 69 units/L (35-129) 11/29/19 18:50 Lactate Dehydrogenase 389 units/L (91-180) H 12/04/19 12:44 Total Creatine Kinase 435 units/L (55-170) H 11/30/19 10:45 C-Reactive Protein 5.30 mg/dL (0.00-1.30) H 12/04/19 12:44 Total Protein 7.7 g/dL (6.3-8.2) 11/29/19 18:50 Albumin 4.1 g/dL (3.9-5) 11/29/19 18:50 Albumin/Globulin Ratio 1.1 % 11/29/19 18:50 Procalcitonin 0.07 ng/mL (<0.15) 11/29/19 22:59 Urine Color Yellow (Yellow) 11/30/19 05:08 Urine Turbidity Clear (Clear) 11/30/19 05:08 Urine pH 5.0 (5.0-7.0) 11/30/19 05:08 Ur Specific [place] 1.016 (1.003-1.030) 11/30/19 05:08 Urine Protein 30 mg/dl mg/dL (Negative) 11/30/19 05:08 Urine Glucose (UA) Neg mg/dL (Negative) 11/30/19 05:08 Urine Ketones Neg mg/dL (Negative) 11/30/19 05:08 Urine Blood Mod (Negative) 11/30/19 05:08 Urine Nitrite Neg (Negative) 11/30/19 05:08 Urine Bilirubin Neg (Negative) 11/30/19 05:08 Urine Urobilinogen < 2.0 mg/dL (<2.0) 11/30/19 05:08 Ur Leukocyte Esterase Neg (Negative) 11/30/19 05:08 Urine WBC (Auto) 1.0 /HPF (0.0-6.0) 11/30/19 05:08 Urine RBC (Auto) 3.0 /HPF (0.0-6.0) 11/30/19 05:08 U Epithel Cells (Auto) < 1.0 /HPF (0-13.0) 11/30/19 05:08 Urine Mucus Few /HPF 11/30/19 05:08 Urine Eosinophils None seen (None Seen) 11/30/19 05:08 Urine Creatinine 193.5 mg/dL (0.1-20.0) H 11/30/19 05:08 Protein/Creatinin Ratio 0.26 11/30/19 05:08 Urine Sodium 60 mmol/L 11/30/19 09:32 Urine Total Protein 50 mg/dL (5-11.8) H 11/30/19 05:08 Coronavirus (PCR) Positive (Negative) A 11/30/19 08:04 Microbiology: Microbiology 11/29/19 19:13 Peripheral/Venous Blood Culture - Preliminary NO GROWTH AFTER 4 DAYS 11/29/19 19:13 Peripheral/Venous Blood Culture - Preliminary NO GROWTH AFTER 4 DAYS Felipe/IV: Voiding Method Toilet IV Catheter Type [Left Forearm INT / Saline Lock ] IV Catheter Type [Left INT / Saline Lock Antecubital] Active Medications - Current Medications Current Medications: Generic Name Dose Route Start Last Admin Trade Name Freq PRN Reason Stop Dose Admin Acetaminophen 650 mg 11/29/19 23:30 12/04/19 05:17 Tylenol PO 650 mg Q4H PRN Administration Fever >101 Apixaban 5 mg 12/01/19 11:00 12/04/19 10:01 Eliquis PO 5 mg Q12HR [place] Administration Ascorbic Acid 1,000 mg 12/01/19 11:00 12/04/19 10:01 Vitamin C PO 1,000 mg BID [place] Administration Cholecalciferol 5,000 unit 12/01/19 11:00 12/04/19 13:17 Vitamin D3 PO 5,000 unit DAILY [place] Administration REMDESIVIR 100 mg/ Sodium 250 mls @ 500 mls/hr 12/05/19 10:00 Chloride IV 12/08/19 10:29 Q24HR [place] TOCILIZUMAB 400 mg/ Sodium 120 mls @ 120 mls/hr 12/04/19 16:00 Chloride IV 12/04/19 16:59 ONCE ONE Sodium Chloride 1,000 mls @ 50 mls/hr 12/04/19 14:45 Nacl 0.9% 1000 Ml IV DIRECT [place] Methylprednisolone Sodium Succinate 40 mg 12/04/19 14:00 12/04/19 13:27 Solu-Medrol IV 40 mg Q8HR [place] Administration Ondansetron HCl 4 mg 11/29/19 23:31 Zofran IV Q8H PRN Nausea And Vomiting Sodium Chloride 50 ml 12/04/19 14:00 12/04/19 14:46 Nacl 0.9% IV 12/08/19 11:01 50 ml Q24HR@1100 [place] Administration
[2019-12-04] MEDS ORDERED: TOCILIZUMAB 400 MG in SODIUM CHLORIDE 0.9% 100 ML IV ONE (16:00)
[2019-12-04] MEDS: SODIUM CHLORIDE 0.9% 1000 ML 1,000 ML IV SCH (17:06)
[2019-12-05] MEDS: methylPREDNISolone Sod Succinate 40 MG/1 ML INJ IV SCH ×3 (05:34→22:03)
[2019-12-05 06:18] LABS: Basophils % (Auto) 0.2 % (0.0-1.8); Hematocrit 40.6 % (35.5-45.6); Hemoglobin 13.8 gm/dl (11.8-15.2); Lymphocytes # (Auto) 0.7 K/mm3 (1.2-5.4); Lymphocytes % (Auto) 7.4 % (13.4-35.0); Mean Corpuscular HGB Conc 34 % (32-34); Mean Corpuscular Volume 91 fl (84-94); Monocytes # (Auto) 0.4 K/mm3 (0.0-0.8); Monocytes % (Auto) 4.2 % (0.0-7.3); Platelet Count 231 K/mm3 (140-440); Red Blood Count 4.45 M/mm3 (3.65-5.03); Red Cell Distribution Width 13.8 % (13.2-15.2)
[2019-12-05 06:27] LABS: C-Reactive Protein 7.4 mg/dL (0.00-1.30); Calcium 8.7 mg/dL (8.4-10.2)
[2019-12-05 06:31] LABS: BUN/Creatinine Ratio 18; Blood Urea Nitrogen 25 mg/dL (9-20); Calcium 8.5 mg/dL (8.4-10.2); Hemolysis Index 12
[2019-12-05] MEDS ORDERED: DEXAMETHASONE 4 MG TAB PO SCH (10:00)
[2019-12-05] MEDS: ASCORBIC ACID 500 MG TAB PO SCH ×2 (10:02→22:04)
[2019-12-05] MEDS: APIXABAN 5 MG TAB PO SCH ×2 (10:02→22:04)
[2019-12-05] MEDS: CHOLECALCIFEROL (VIT D3) 5,000 UNIT TAB PO SCH (10:02)
[2019-12-05] MEDS: REMDESIVIR 100 MG in SODIUM CHLORIDE 0.9% 250ML 250 ML IV SCH (10:21)
[2019-12-05] MEDS: SODIUM CHLORIDE 0.9% 1000 ML 1,000 ML IV SCH ×2 (10:22→14:15)
--- NOTE | 2019-12-05 14:04 | Progress Note ---
Assessment and Plan Assessment: Acute renal failure likely secondary to prerenal azotemia Sepsis COVID-19 POSITIVE Bilateral Pneumonia secondary to COVID-19 Plan: -Renal labs reviewed. Serum creatinine 1.5 today, was 1.3 yesterday, in stable range -Serum creatinine baseline unknown -S/P IV hydration -Urine lytes, protein reviewed. No urine eosinophils seen. -Renal US-pending -Renally dose medications -Strict I&O monitoring -Obtain daily weights -Avoid nephrotoxic agents -Continue to monitor -COVID-19 PNA, ID onboard Subjective Date of service: 12/05/19 Principal diagnosis: COVID-19 PNEUMONIA Interval history: Patient is COVID-19 positive. Chart reviewed and recommendations provided. Objective - Vital Signs Vital signs: Vital Signs - 12hr 12/05/19 12/05/19 05:15 11:45 Temperature 97.7 F 98.4 F Pulse Rate 52 L 70 Respiratory 18 20 Rate Blood Pressure 107/70 120/84 O2 Sat by Pulse 95 94 Oximetry - Lab 12/05/19 05:30 12/05/19 05:30 Most recent lab results Calcium 8.5 mg/dL (8.4-10.2) 12/05/19 05:30 Calcium 8.7 mg/dL (8.4-10.2) 12/05/19 05:30 Phosphorus 4.50 mg/dL (2.5-4.5) 12/05/19 05:30 Urine Creatinine 193.5 mg/dL (0.1-20.0) H 11/30/19 05:08 Urine Sodium 60 mmol/L 11/30/19 09:32 Urine Total Protein 50 mg/dL (5-11.8) H 11/30/19 05:08 Medications & Allergies - Medications Allergies/Adverse Reactions: Allergies No Known Allergies Allergy (Unverified 11/29/19 17:43) Home Medications: Home Medications Medication Instructions Recorded Confirmed Last Taken Type No Known Home Medications [No 11/30/19 11/30/19 Unknown History Reported Home Medications] Active Medications: Generic Name Dose Route Start Last Admin Trade Name Freq PRN Reason Stop Dose Admin Acetaminophen 650 mg 11/29/19 23:30 12/04/19 05:17 Tylenol PO 650 mg Q4H PRN Administration Fever >101 Apixaban 5 mg 12/01/19 11:00 12/05/19 10:02 Eliquis PO 5 mg Q12HR [place] Administration Ascorbic Acid 1,000 mg 12/01/19 11:00 12/05/19 10:02 Vitamin C PO 1,000 mg BID [place] Administration Cholecalciferol 5,000 unit 12/01/19 11:00 12/05/19 10:02 Vitamin D3 PO 5,000 unit DAILY [place] Administration REMDESIVIR 100 mg/ Sodium 250 mls @ 500 mls/hr 12/05/19 10:00 12/05/19 10:21 Chloride IV 12/08/19 10:29 500 mls/hr Q24HR [place] Administration Sodium Chloride 1,000 mls @ 50 mls/hr 12/04/19 14:45 12/05/19 10:22 Nacl 0.9% 1000 Ml IV 50 mls/hr DIRECT [place] Administration Methylprednisolone Sodium Succinate 40 mg 12/04/19 14:00 12/05/19 05:34 Solu-Medrol IV 40 mg Q8HR [place] Administration Ondansetron HCl 4 mg 11/29/19 23:31 Zofran IV Q8H PRN Nausea And Vomiting Sodium Chloride 50 ml 12/04/19 14:00 12/04/19 14:46 Nacl 0.9% IV 12/08/19 11:01 50 ml Q24HR@1100 [place] Administration
[2019-12-05] MEDS: SODIUM CHLORIDE 0.9% 50 ML IVPB IV SCH (14:16)
--- NOTE | 2019-12-05 14:53 | Progress Note ---
Assessment and Plan Sepsis due to COVID-19 pneumonia -Continue to treat underlying condition, blood culture negative COVID-19 pneumonia -ID following, started on Ramdisivir -Status post tocilizumab x1 dose -Follow inflammatory markers Acute hypoxemic respiratory failure -Due to COVID-19 pneumonia, continue supplemental O2, -Wean off O2 as tolerated Secondary Coagulopathy -Placed on Eliquis 5 mg twice daily JONH secondary to vasomotor nephropathy -Continue to monitor renal function, follow BMP DVT prophylaxis, on Eliquis 11/30: Still with intermittent fever, No increased oxygen need, await ID re- evaluation, may need antibiotics considering recurrent fever. Dexamethasone 6 mg daily started. ID is also initiating rem D severe and check an interleukin-6 level. No antibiotics at this time as patient procalcitonin is normal 12/01: We will continue dexamethasone. Monitor for 1 additional day will attempt to see if we can get ambulatory oxygen greater than 94% prior to discharge. Patient verbalized understanding. Renal function continues to improve. Outpatient nephrology follow-up. 12/02: Continue current therapy, discussed plan of care as it relates to oxygen with the patient, continue dexamethasone. Anticipate discharge in am if Spo2>94% 12/03: We will start patient on oxygen as oxygen saturation with ambulation is between 90 to 91%. continue Remdesivir as started by ID, plan os for 200mg iv x 1 AND THEN 100MG IV Daily x 4 doses, consent was obtained by ID. also patient changed to Solumderol 40mg, Interlukin 6 still pending,. Tocilzuimab was also given today. Hypoxia persist and plan discussed with he patient in detail 12/04: Continue Remdesivir and Solu-Medrol, follow inflammatory markers, wean off O2 as tolerated. Monitor fever curve. DC planning: When clears by ID and completes his Remdesivir dose total 5 days Brief history: Patient is a 54-year-old male with a past medical history hypertension admitted to the hospital on 11/30/2019 due to cough, fever, generalized body aches, and diarrhea for last 3 days. Patient reports that 2 of his coworkers have tested positive for coronavirus. He has been wearing a mask at his job. He has not been tested for coronavirus. His is here with similar symptoms. COVID-19 testing was positive patient had been having fevers with T-max of 102.3 Hospitalist Physical VITAL SIGNS: Reviewed. GENERAL: The patient appears normally developed, Vital signs as documented. HEAD: No signs of head trauma. EYES: Pupils are equal. Extraocular motions intact. EARS: Hearing grossly intact. MOUTH: Oropharynx is normal. NECK: No adenopathy, no JVD. CHEST: Chest with clear breath sounds bilaterally. No wheezes, rales, or rhonchi. CARDIAC: Regular rate and rhythm. S1 and S2, without murmurs, gallops, or rubs. VASCULAR: No Edema. Peripheral pulses normal and equal in all extremities. ABDOMEN: Soft, non tender and non distended. No rebound or guarding, and no masses palpated. Bowel Sounds normal. MUSCULOSKELETAL: Good range of motion of all major joints. Extremities without clubbing, cyanosis or edema. NEUROLOGIC EXAM: Alert and oriented x 3 No focal sensory or strength deficits. Speech normal. Follows commands. PSYCHIATRIC: Mood normal. SKIN: no rash Subjective Date of service: 12/05/19 Principal diagnosis: COVID-19 PNEUMONIA Objective - Constitutional Vitals: Vital Signs - 12hr 12/05/19 12/05/19 05:15 11:45 Temperature 97.7 F 98.4 F Pulse Rate 52 L 70 Respiratory 18 20 Rate Blood Pressure 107/70 120/84 O2 Sat by Pulse 95 94 Oximetry - Labs CBC & Chem 7: 12/05/19 05:30 12/05/19 05:30 Labs: Abnormal lab results 12/05/19 12/05/19 12/05/19 Range/Units 05:30 05:30 05:30 Lymph % (Auto) 7.4 L (13.4-35.0) % Lymph # 0.7 L (1.2-5.4) K/mm3 Seg Neutrophils % 88.2 H (40.0-70.0) % Seg Neutrophils # 8.0 H (1.8-7.7) K/mm3 D-Dimer (0-234) ng/mlDDU Potassium 5.1 H (3.6-5.0) mmol/L BUN 25 H 25 H (9-20) mg/dL Glucose 148 H 153 H (75-100) mg/dL Ferritin (13.0-400.0) ng/mL Lactate Dehydrogenase 384 H (91-180) units/L C-Reactive Protein 7.40 H (0.00-1.30) mg/dL 12/05/19 12/05/19 Range/Units 05:30 05:30 Lymph % (Auto) (13.4-35.0) % Lymph # (1.2-5.4) K/mm3 Seg Neutrophils % (40.0-70.0) % Seg Neutrophils # (1.8-7.7) K/mm3 D-Dimer 565.45 H (0-234) ng/mlDDU Potassium (3.6-5.0) mmol/L BUN (9-20) mg/dL Glucose (75-100) mg/dL Ferritin 1059.0 H (13.0-400.0) ng/mL Lactate Dehydrogenase (91-180) units/L C-Reactive Protein (0.00-1.30) mg/dL
--- NOTE | 2019-12-05 15:17 | Progress Note ---
Assessment and Plan Cultures: 11/29/2019 blood culture: No growth today 11/30/2019 COVID-19 PCR: Positive A/P: 54-year-old male with hypertension with: #Fever: due to COVID. fever resolved x 24h #Bilateral pneumonia secondary to COVID-19: D-dimer 516-->644-->565, ferritin 452-->845-->1009, LDH 301-->138, procalcitonin 0.07, CRP 1.5-->7.4. #Acute hypoxemic respiratory failure: sats remains <93%, ambulating 90% on 6.25, now on 2L NC #Acute kidney injury: Creatinine 2.0. Nephrology following. Recs: continue remdesivir day 2 of 5 -CrCl >30 S/p tociluzimab 8 mg IV x 1 continue solumedrol 40 mg Iv q 8 hour day 2 Obtain interleukin-6 level - ordered trend daily ferritin, LDH, d-dimer, CRP Will follow MD [facility] ([facility]) Office [phone] Subjective Date of service: 12/05/19 Principal diagnosis: COVID-19 PNEUMONIA Interval history: Feels better but still cough sat >94% on 2 L Objective - Exam Narrative Exam: Physical Exam (reviewed in chart due to PPE conservation) Alert in NAD Head, Ears, Nose:NC atraumatic Eyes: limited due to PPE conservation strategy Neck: limited due to PPE conservation strategy Oral: limited due to PPE conservation strategy Cardiovascular: limited due to PPE conservation strategy Respiratory: limited due to PPE conservation strategy GI: limited due to PPE conservation strategy Musculoskeletal: limited due to PPE conservation strategy Skin: limited due to PPE conservation strategy Hem/Lymphatic: limited due to PPE conservation strategy Psych: no agitated Neurological: alert and oriented x3 - Constitutional Vitals: Vital Signs Temp Pulse Resp BP Pulse Ox 98.4 F 70 20 120/84 94 12/05/19 11:45 12/05/19 11:45 12/05/19 11:45 12/05/19 11:45 12/05/19 11:45 Temperature -Last 24 Hours Temperature 98.4 F Temperature 97.7 F Temperature 99.0 F Temperature 99.0 F - Labs CBC & Chem 7: 12/05/19 05:30 12/05/19 05:30 Labs: Abnormal lab results 12/05/19 12/05/19 12/05/19 Range/Units 05:30 05:30 05:30 Lymph % (Auto) 7.4 L (13.4-35.0) % Lymph # 0.7 L (1.2-5.4) K/mm3 Seg Neutrophils % 88.2 H (40.0-70.0) % Seg Neutrophils # 8.0 H (1.8-7.7) K/mm3 D-Dimer (0-234) ng/mlDDU Potassium 5.1 H (3.6-5.0) mmol/L BUN 25 H 25 H (9-20) mg/dL Glucose 148 H 153 H (75-100) mg/dL Ferritin (13.0-400.0) ng/mL Lactate Dehydrogenase 384 H (91-180) units/L C-Reactive Protein 7.40 H (0.00-1.30) mg/dL 12/05/19 12/05/19 Range/Units 05:30 05:30 Lymph % (Auto) (13.4-35.0) % Lymph # (1.2-5.4) K/mm3 Seg Neutrophils % (40.0-70.0) % Seg Neutrophils # (1.8-7.7) K/mm3 D-Dimer 565.45 H (0-234) ng/mlDDU Potassium (3.6-5.0) mmol/L BUN (9-20) mg/dL Glucose (75-100) mg/dL Ferritin 1059.0 H (13.0-400.0) ng/mL Lactate Dehydrogenase (91-180) units/L C-Reactive Protein (0.00-1.30) mg/dL
[2019-12-06] MEDS: methylPREDNISolone Sod Succinate 40 MG/1 ML INJ IV SCH ×3 (05:53→21:59)
[2019-12-06] MEDS: SODIUM CHLORIDE 0.9% 1000 ML 1,000 ML IV SCH (05:53)
[2019-12-06 08:10] LABS: BUN/Creatinine Ratio 25; Blood Urea Nitrogen 27 mg/dL (9-20); Calcium 8.6 mg/dL (8.4-10.2); Hemolysis Index 42
[2019-12-06 08:25] LABS: Basophils % (Auto) 0.2 % (0.0-1.8); Eosinophils % (Auto) 0.3 % (0.0-4.3); Hematocrit 41.3 % (35.5-45.6); Hemoglobin 13.8 gm/dl (11.8-15.2); Lymphocytes # (Auto) 0.7 K/mm3 (1.2-5.4); Lymphocytes % (Auto) 4.7 % (13.4-35.0); Mean Corpuscular HGB Conc 33 % (32-34); Mean Corpuscular Volume 93 fl (84-94); Monocytes # (Auto) 0.7 K/mm3 (0.0-0.8); Red Blood Count 4.43 M/mm3 (3.65-5.03); Red Cell Distribution Width 14.1 % (13.2-15.2)
[2019-12-06 08:26] LABS: Platelet Count 265 K/mm3 (140-440)
[2019-12-06] MEDS: APIXABAN 5 MG TAB PO SCH ×2 (10:13→21:59)
[2019-12-06] MEDS: ASCORBIC ACID 500 MG TAB PO SCH ×2 (10:13→21:59)
[2019-12-06] MEDS: REMDESIVIR 100 MG in SODIUM CHLORIDE 0.9% 250ML 250 ML IV SCH (10:14)
[2019-12-06] MEDS: SODIUM CHLORIDE 0.9% 50 ML IVPB IV SCH ×2 (10:18→11:16)
[2019-12-06] MEDS: CHOLECALCIFEROL (VIT D3) 5,000 UNIT TAB PO SCH (10:25)
--- NOTE | 2019-12-06 10:38 | Progress Note ---
Assessment and Plan Acute renal failure likely secondary to prerenal azotemia Sepsis COVID-19 POSITIVE Bilateral Pneumonia secondary to COVID-19 Plan: -Renal labs reviewed. Serum creatinine trending down. -Serum creatinine baseline unknown -S/P IV hydration -Urine lytes, protein reviewed. No urine eosinophils seen. -Renal US-pending -Renally dose medications -Strict I&O monitoring -Obtain daily weights -Avoid nephrotoxic agents -Continue to monitor -COVID-19 PNA, ID onboard Subjective Date of service: 12/06/19 Principal diagnosis: COVID-19 PNEUMONIA Interval history: Making urine. Objective - Exam Narrative Exam: Physical Exam GE:Awake Head, Ears, Nose:NC atraumatic Eyes: limited due to PPE conservation strategy Neck: limited due to PPE conservation strategy Oral: limited due to PPE conservation strategy Cardiovascular: limited due to PPE conservation strategy Respiratory: limited due to PPE conservation strategy GI: limited due to PPE conservation strategy Musculoskeletal: limited due to PPE conservation strategy Skin: limited due to PPE conservation strategy Hem/Lymphatic: limited due to PPE conservation strategy Psych: no agitated Neurological: alert and oriented x3 - Vital Signs Vital signs: Vital Signs - 12hr 12/06/19 12/06/19 04:55 09:04 Temperature 97.8 F Pulse Rate 54 L Respiratory 20 Rate Blood Pressure 125/84 O2 Sat by Pulse 96 95 Oximetry - Lab 12/06/19 06:52 12/06/19 06:52 Most recent lab results Calcium 8.6 mg/dL (8.4-10.2) 12/06/19 06:52 Phosphorus 4.50 mg/dL (2.5-4.5) 12/05/19 05:30 Urine Creatinine 193.5 mg/dL (0.1-20.0) H 11/30/19 05:08 Urine Sodium 60 mmol/L 11/30/19 09:32 Urine Total Protein 50 mg/dL (5-11.8) H 11/30/19 05:08 Medications & Allergies - Medications Allergies/Adverse Reactions: Allergies No Known Allergies Allergy (Unverified 11/29/19 17:43) Home Medications: Home Medications Medication Instructions Recorded Confirmed Last Taken Type No Known Home Medications [No 11/30/19 11/30/19 Unknown History Reported Home Medications] Active Medications: Generic Name Dose Route Start Last Admin Trade Name Freq PRN Reason Stop Dose Admin Acetaminophen 650 mg 11/29/19 23:30 12/04/19 05:17 Tylenol PO 650 mg Q4H PRN Administration Fever >101 Apixaban 5 mg 12/01/19 11:00 12/06/19 10:13 Eliquis PO 5 mg Q12HR [place] Administration Ascorbic Acid 1,000 mg 12/01/19 11:00 12/06/19 10:13 Vitamin C PO 1,000 mg BID [place] Administration Cholecalciferol 5,000 unit 12/01/19 11:00 12/06/19 10:25 Vitamin D3 PO 5,000 unit DAILY [place] Administration REMDESIVIR 100 mg/ Sodium 250 mls @ 500 mls/hr 12/05/19 10:00 12/06/19 10:14 Chloride IV 12/08/19 10:29 500 mls/hr Q24HR [place] Administration Sodium Chloride 1,000 mls @ 50 mls/hr 12/04/19 14:45 12/06/19 05:53 Nacl 0.9% 1000 Ml IV 50 mls/hr DIRECT [place] Administration Methylprednisolone Sodium Succinate 40 mg 12/04/19 14:00 12/06/19 05:53 Solu-Medrol IV 40 mg Q8HR [place] Administration Ondansetron HCl 4 mg 11/29/19 23:31 Zofran IV Q8H PRN Nausea And Vomiting Sodium Chloride 50 ml 12/04/19 14:00 12/05/19 14:16 Nacl 0.9% IV 12/08/19 11:01 Not Given Q24HR@1100 [place]
[2019-12-07] MEDS: methylPREDNISolone Sod Succinate 40 MG/1 ML INJ IV SCH ×3 (05:19→21:52)
[2019-12-07 07:28] LABS: Hematocrit 42.8 % (35.5-45.6); Hemoglobin 14.3 gm/dl (11.8-15.2); Mean Corpuscular HGB Conc 34 % (32-34); Mean Corpuscular Volume 92 fl (84-94); Platelet Count 369 K/mm3 (140-440); Red Blood Count 4.67 M/mm3 (3.65-5.03); Red Cell Distribution Width 13.5 % (13.2-15.2)
[2019-12-07 07:47] LABS: BUN/Creatinine Ratio 20; Blood Urea Nitrogen 26 mg/dL (9-20); Calcium 8.8 mg/dL (8.4-10.2); Hemolysis Index 2
--- NOTE | 2019-12-07 09:27 | Progress Note ---
Assessment and Plan Sepsis due to COVID-19 pneumonia -Continue to treat underlying condition, blood culture negative COVID-19 pneumonia -ID following, started on Ramdisivir -Status post tocilizumab x1 dose -Follow inflammatory markers Acute hypoxemic respiratory failure -Due to COVID-19 pneumonia, continue supplemental O2, -Wean off O2 as tolerated Secondary Coagulopathy -Placed on Eliquis 5 mg twice daily JONH secondary to vasomotor nephropathy -Continue to monitor renal function, follow BMP DVT prophylaxis, on Eliquis 11/30: Still with intermittent fever, No increased oxygen need, await ID re- evaluation, may need antibiotics considering recurrent fever. Dexamethasone 6 mg daily started. ID is also initiating rem D severe and check an interleukin-6 level. No antibiotics at this time as patient procalcitonin is normal 12/01: We will continue dexamethasone. Monitor for 1 additional day will attempt to see if we can get ambulatory oxygen greater than 94% prior to discharge. Patient verbalized understanding. Renal function continues to improve. Outpatient nephrology follow-up. 12/02: Continue current therapy, discussed plan of care as it relates to oxygen with the patient, continue dexamethasone. Anticipate discharge in am if Spo2>94% 12/03: We will start patient on oxygen as oxygen saturation with ambulation is between 90 to 91%. continue Remdesivir as started by ID, plan os for 200mg iv x 1 AND THEN 100MG IV Daily x 4 doses, consent was obtained by ID. also patient changed to Solumderol 40mg, Interlukin 6 still pending,. Tocilzuimab was also given today. Hypoxia persist and plan discussed with he patient in detail 12/04: Continue Remdesivir and Solu-Medrol, follow inflammatory markers, wean off O2 as tolerated. Monitor fever curve. 12/05: Continue Remdesivir day 3 of 5 and Solu-Medrol, follow inflammatory markers, wean off O2 as tolerated. Monitor fever curve. Cr trending down DC planning: When clears by ID and completes his Remdesivir dose total 5 days Brief history: Patient is a 54-year-old male with a past medical history hypertension admitted to the hospital on 11/30/2019 due to cough, fever, generalized body aches, and diarrhea for last 3 days. Patient reports that 2 of his coworkers have tested positive for coronavirus. He has been wearing a mask at his job. He has not been tested for coronavirus. His is here with similar symptoms. COVID-19 testing was positive patient had been having fevers with T-max of 102.3 Hospitalist Physical VITAL SIGNS: Reviewed. GENERAL: The patient appears normally developed, Vital signs as documented. HEAD: No signs of head trauma. EYES: Pupils are equal. Extraocular motions intact. EARS: Hearing grossly intact. MOUTH: Oropharynx is normal. NECK: No adenopathy, no JVD. CHEST: Chest with clear breath sounds bilaterally. No wheezes, rales, or rhonchi. CARDIAC: Regular rate and rhythm. S1 and S2, without murmurs, gallops, or rubs. VASCULAR: No Edema. Peripheral pulses normal and equal in all extremities. ABDOMEN: Soft, non tender and non distended. No rebound or guarding, and no masses palpated. Bowel Sounds normal. MUSCULOSKELETAL: Good range of motion of all major joints. Extremities without clubbing, cyanosis or edema. NEUROLOGIC EXAM: Alert and oriented x 3 No focal sensory or strength deficits. Speech normal. Follows commands. PSYCHIATRIC: Mood normal. SKIN: no rash Subjective Date of service: 12/06/19 Principal diagnosis: COVID-19 PNEUMONIA Objective - Constitutional Vitals: Vital Signs - 12hr 12/06/19 12/07/19 12/07/19 21:47 03:58 04:17 Temperature 98.7 F 97.8 F Pulse Rate 47 L Respiratory 20 20 Rate Blood Pressure 152/90 145/91 O2 Sat by Pulse 97 Oximetry - Labs CBC & Chem 7: 12/07/19 06:20 12/07/19 06:20 Labs: Abnormal lab results 12/07/19 12/07/19 12/07/19 Range/Units 06:20 06:20 06:20 WBC 17.0 H (4.5-11.0) K/mm3 D-Dimer 563.53 H (0-234) ng/mlDDU BUN 26 H (9-20) mg/dL Glucose 162 H (75-100) mg/dL Ferritin (13.0-400.0) ng/mL Lactate Dehydrogenase 350 H (91-180) units/L 12/07/19 Range/Units 06:20 WBC (4.5-11.0) K/mm3 D-Dimer (0-234) ng/mlDDU BUN (9-20) mg/dL Glucose (75-100) mg/dL Ferritin 1007.0 H (13.0-400.0) ng/mL Lactate Dehydrogenase (91-180) units/L
[2019-12-07] MEDS: CHOLECALCIFEROL (VIT D3) 5,000 UNIT TAB PO SCH (10:40)
[2019-12-07] MEDS: APIXABAN 5 MG TAB PO SCH ×2 (10:40→21:52)
[2019-12-07] MEDS: REMDESIVIR 100 MG in SODIUM CHLORIDE 0.9% 250ML 250 ML IV SCH (10:40)
[2019-12-07] MEDS: ASCORBIC ACID 500 MG TAB PO SCH ×2 (10:40→21:54)
[2019-12-07 11:06] LABS: Band Neutrophils # (Manual) 0.2 K/mm3; Basophils % (Manual) 0 % (0.0-1.8); Eosinophils % (Manual) 0 % (0.0-4.3); Total Cells Counted 100
[2019-12-07 11:07] LABS: Platelet Estimate Consistent w Auto; RBC Morphology Normal
--- NOTE | 2019-12-07 11:24 | Progress Note ---
Assessment and Plan Acute renal failure likely secondary to prerenal azotemia Sepsis COVID-19 POSITIVE Bilateral Pneumonia secondary to COVID-19 Plan: -Renal labs reviewed. Serum creatinine slightly up, monitor. -Serum creatinine baseline unknown -S/P IV hydration -Urine lytes, protein reviewed. No urine eosinophils seen. -Renal US-pending -Renally dose medications -Strict I&O monitoring -Obtain daily weights -Avoid nephrotoxic agents -Continue to monitor -COVID-19 PNA, ID onboard Subjective Date of service: 12/07/19 Principal diagnosis: COVID-19 PNEUMONIA Interval history: Making urine. Objective - Exam Narrative Exam: Physical Exam GE:Awake Head, Ears, Nose:NC atraumatic Eyes: limited due to PPE conservation strategy Neck: limited due to PPE conservation strategy Oral: limited due to PPE conservation strategy Cardiovascular: limited due to PPE conservation strategy Respiratory: limited due to PPE conservation strategy GI: limited due to PPE conservation strategy Musculoskeletal: limited due to PPE conservation strategy Skin: limited due to PPE conservation strategy Hem/Lymphatic: limited due to PPE conservation strategy Psych: no agitated Neurological: alert and oriented x3 - Vital Signs Vital signs: Vital Signs - 12hr 12/07/19 12/07/19 03:58 04:17 Temperature 97.8 F Pulse Rate 47 L Respiratory 20 Rate Blood Pressure 145/91 O2 Sat by Pulse 97 Oximetry - Lab 12/07/19 06:20 12/07/19 06:20 Most recent lab results Calcium 8.8 mg/dL (8.4-10.2) 12/07/19 06:20 Phosphorus 4.50 mg/dL (2.5-4.5) 12/05/19 05:30 Urine Creatinine 193.5 mg/dL (0.1-20.0) H 11/30/19 05:08 Urine Sodium 60 mmol/L 11/30/19 09:32 Urine Total Protein 50 mg/dL (5-11.8) H 11/30/19 05:08 Medications & Allergies - Medications Allergies/Adverse Reactions: Allergies No Known Allergies Allergy (Unverified 11/29/19 17:43) Home Medications: Home Medications Medication Instructions Recorded Confirmed Last Taken Type No Known Home Medications [No 11/30/19 11/30/19 Unknown History Reported Home Medications] Active Medications: Generic Name Dose Route Start Last Admin Trade Name Freq PRN Reason Stop Dose Admin Acetaminophen 650 mg 11/29/19 23:30 12/04/19 05:17 Tylenol PO 650 mg Q4H PRN Administration Fever >101 Apixaban 5 mg 12/01/19 11:00 12/07/19 10:40 Eliquis PO 5 mg Q12HR [place] Administration Ascorbic Acid 1,000 mg 12/01/19 11:00 12/07/19 10:40 Vitamin C PO 1,000 mg BID [place] Administration Cholecalciferol 5,000 unit 12/01/19 11:00 12/07/19 10:40 Vitamin D3 PO 5,000 unit DAILY [place] Administration REMDESIVIR 100 mg/ Sodium 250 mls @ 500 mls/hr 12/05/19 10:00 12/07/19 10:40 Chloride IV 12/08/19 10:29 500 mls/hr Q24HR [place] Administration Sodium Chloride 1,000 mls @ 50 mls/hr 12/04/19 14:45 12/07/19 05:20 Nacl 0.9% 1000 Ml IV Infused DIRECT [place] Infusion Methylprednisolone Sodium Succinate 40 mg 12/04/19 14:00 12/07/19 05:19 Solu-Medrol IV 40 mg Q8HR [place] Administration Ondansetron HCl 4 mg 11/29/19 23:31 Zofran IV Q8H PRN Nausea And Vomiting Sodium Chloride 50 ml 12/04/19 14:00 12/06/19 11:16 Nacl 0.9% IV 12/08/19 11:01 50 ml Q24HR@1100 [place] Administration
[2019-12-07] MEDS: SODIUM CHLORIDE 0.9% 50 ML IVPB IV SCH (11:49)
--- NOTE | 2019-12-07 12:49 | Progress Note ---
Assessment and Plan Sepsis due to COVID-19 pneumonia -Continue to treat underlying condition, blood culture negative COVID-19 pneumonia -ID following, started on Ramdisivir -Status post tocilizumab x1 dose -Follow inflammatory markers Acute hypoxemic respiratory failure -Due to COVID-19 pneumonia, continue supplemental O2, -Wean off O2 as tolerated Secondary Coagulopathy -Placed on Eliquis 5 mg twice daily JONH secondary to vasomotor nephropathy -Continue to monitor renal function, follow BMP DVT prophylaxis, on Eliquis 11/30: Still with intermittent fever, No increased oxygen need, await ID re- evaluation, may need antibiotics considering recurrent fever. Dexamethasone 6 mg daily started. ID is also initiating rem D severe and check an interleukin-6 level. No antibiotics at this time as patient procalcitonin is normal 12/01: We will continue dexamethasone. Monitor for 1 additional day will attempt to see if we can get ambulatory oxygen greater than 94% prior to discharge. Patient verbalized understanding. Renal function continues to improve. Outpatient nephrology follow-up. 12/02: Continue current therapy, discussed plan of care as it relates to oxygen with the patient, continue dexamethasone. Anticipate discharge in am if Spo2>94% 12/03: We will start patient on oxygen as oxygen saturation with ambulation is between 90 to 91%. continue Remdesivir as started by ID, plan os for 200mg iv x 1 AND THEN 100MG IV Daily x 4 doses, consent was obtained by ID. also patient changed to Solumderol 40mg, Interlukin 6 still pending,. Tocilzuimab was also given today. Hypoxia persist and plan discussed with he patient in detail 12/04: Continue Remdesivir and Solu-Medrol, follow inflammatory markers, wean off O2 as tolerated. Monitor fever curve. 12/05: Continue Remdesivir day 3 of 5 and Solu-Medrol, follow inflammatory markers, wean off O2 as tolerated. Monitor fever curve. Cr trending down 12/06: Remdesivir day 4 of 5, if clinically stable possible d/c tomorrow. will repeat home O2 requirement DC planning: When clears by ID and completes his Remdesivir dose total 5 days Brief history: Patient is a 54-year-old male with a past medical history hypertension admitted to the hospital on 11/30/2019 due to cough, fever, generalized body aches, and diarrhea for last 3 days. Patient reports that 2 of his coworkers have tested positive for coronavirus. He has been wearing a mask at his job. He has not been tested for coronavirus. His is here with similar symptoms. COVID-19 testing was positive patient had been having fevers with T-max of 102.3 Hospitalist Physical VITAL SIGNS: Reviewed. GENERAL: The patient appears normally developed, Vital signs as documented. HEAD: No signs of head trauma. EYES: Pupils are equal. Extraocular motions intact. EARS: Hearing grossly intact. MOUTH: Oropharynx is normal. NECK: No adenopathy, no JVD. CHEST: Chest with clear breath sounds bilaterally. No wheezes, rales, or rhonchi. CARDIAC: Regular rate and rhythm. S1 and S2, without murmurs, gallops, or rubs. VASCULAR: No Edema. Peripheral pulses normal and equal in all extremities. ABDOMEN: Soft, non tender and non distended. No rebound or guarding, and no masses palpated. Bowel Sounds normal. MUSCULOSKELETAL: Good range of motion of all major joints. Extremities without clubbing, cyanosis or edema. NEUROLOGIC EXAM: Alert and oriented x 3 No focal sensory or strength deficits. Speech normal. Follows commands. PSYCHIATRIC: Mood normal. SKIN: no rash Subjective Date of service: 12/07/19 Principal diagnosis: COVID-19 PNEUMONIA Objective - Constitutional Vitals: Vital Signs - 12hr 12/07/19 12/07/19 03:58 04:17 Temperature 97.8 F Pulse Rate 47 L Respiratory 20 Rate Blood Pressure 145/91 O2 Sat by Pulse 97 Oximetry - Labs CBC & Chem 7: 12/07/19 06:20 12/07/19 06:20 Labs: Abnormal lab results 12/07/19 12/07/19 12/07/19 Range/Units 06:20 06:20 06:20 WBC 17.0 H (4.5-11.0) K/mm3 Seg Neuts % (Manual) 92.0 H (40.0-70.0) % Lymphocytes % (Manual) 2.0 L (13.4-35.0) % Seg Neutrophils # Man 15.6 H (1.8-7.7) K/mm3 Lymphocytes # (Manual) 0.3 L (1.2-5.4) K/mm3 D-Dimer 563.53 H (0-234) ng/mlDDU BUN 26 H (9-20) mg/dL Glucose 162 H (75-100) mg/dL Ferritin (13.0-400.0) ng/mL Lactate Dehydrogenase 350 H (91-180) units/L 12/07/19 Range/Units 06:20 WBC (4.5-11.0) K/mm3 Seg Neuts % (Manual) (40.0-70.0) % Lymphocytes % (Manual) (13.4-35.0) % Seg Neutrophils # Man (1.8-7.7) K/mm3 Lymphocytes # (Manual) (1.2-5.4) K/mm3 D-Dimer (0-234) ng/mlDDU BUN (9-20) mg/dL Glucose (75-100) mg/dL Ferritin 1007.0 H (13.0-400.0) ng/mL Lactate Dehydrogenase (91-180) units/L
[2019-12-08] MEDS: methylPREDNISolone Sod Succinate 40 MG/1 ML INJ IV SCH ×3 (06:16→21:00)
--- NOTE | 2019-12-08 07:45 | Progress Note ---
Assessment and Plan Cultures: 11/29/2019 blood culture: No growth today 11/30/2019 COVID-19 PCR: Positive A/P: 54-year-old male with hypertension with: #Fever: due to COVID. fever resolved x 24h #Bilateral pneumonia secondary to COVID-19: D-dimer 516-->644-->565, ferritin 452-->845-->1009, LDH 301-->138, procalcitonin 0.07, CRP 1.5-->7.4. #Acute hypoxemic respiratory failure: Remains on 2 L nasal cannula, sats > 96% #Acute kidney injury: Creatinine 2.0. Nephrology following. #Leukocytosis: likely due to IV Solu-Medrol Recs: Exercise pulse oximeter - O2 sats after 6 minutes walk test inside room, document in chart, okay to discharge if O2 sats are more than 94% Stop remdesivir day 3 of 5 -CrCl >30 S/p tociluzimab 8 mg IV x 1 on 12/05/2019 continue solumedrol 40 mg Iv q 8 hour day 5 -okay to change to prednisone taper Obtain interleukin-6 level - ordered trend daily ferritin, LDH, d-dimer, CRP Okay to discharge from ID standpoint after exercise pulse oximetry Will follow Elayne Lopez MD [facility] ([facility]) Office [phone] Subjective Date of service: 12/08/19 Principal diagnosis: COVID-19 PNEUMONIA Interval history: Feels better but still cough sat >94% on 2 L Objective - Exam Narrative Exam: Physical Exam (reviewed in chart due to PPE conservation) Alert in NAD Head, Ears, Nose:NC atraumatic Eyes: limited due to PPE conservation strategy Neck: limited due to PPE conservation strategy Oral: limited due to PPE conservation strategy Cardiovascular: limited due to PPE conservation strategy Respiratory: limited due to PPE conservation strategy GI: limited due to PPE conservation strategy Musculoskeletal: limited due to PPE conservation strategy Skin: limited due to PPE conservation strategy Hem/Lymphatic: limited due to PPE conservation strategy Psych: no agitated Neurological: alert and oriented x3 - Constitutional Vitals: Vital Signs Temp Pulse Resp BP Pulse Ox 98.2 F 47 L 20 163/81 96 12/07/19 21:56 12/07/19 21:56 12/07/19 21:56 12/07/19 21:56 12/07/19 22:00 Temperature -Last 24 Hours Temperature 98.2 F Temperature 97.9 F Temperature 98.0 F - Labs CBC & Chem 7: 12/07/19 06:20 12/07/19 06:20 Labs: Abnormal lab results 12/07/19 12/07/19 12/07/19 Range/Units 06:20 06:20 06:20 Seg Neuts % (Manual) 92.0 H (40.0-70.0) % Lymphocytes % (Manual) 2.0 L (13.4-35.0) % Seg Neutrophils # Man 15.6 H (1.8-7.7) K/mm3 Lymphocytes # (Manual) 0.3 L (1.2-5.4) K/mm3 D-Dimer 563.53 H (0-234) ng/mlDDU BUN 26 H (9-20) mg/dL Glucose 162 H (75-100) mg/dL Ferritin (13.0-400.0) ng/mL Lactate Dehydrogenase 350 H (91-180) units/L 12/07/19 Range/Units 06:20 Seg Neuts % (Manual) (40.0-70.0) % Lymphocytes % (Manual) (13.4-35.0) % Seg Neutrophils # Man (1.8-7.7) K/mm3 Lymphocytes # (Manual) (1.2-5.4) K/mm3 D-Dimer (0-234) ng/mlDDU BUN (9-20) mg/dL Glucose (75-100) mg/dL Ferritin 1007.0 H (13.0-400.0) ng/mL Lactate Dehydrogenase (91-180) units/L
--- NOTE | 2019-12-08 09:04 | Progress Note ---
Assessment and Plan Acute renal failure likely secondary to prerenal azotemia Sepsis COVID-19 POSITIVE Bilateral Pneumonia secondary to COVID-19 Plan: -BMP is pending this AM -Serum creatinine baseline unknown -S/P IV hydration -Urine lytes, protein reviewed. No urine eosinophils seen. -Renal US-pending -Renally dose medications -Strict I&O monitoring -Obtain daily weights -Avoid nephrotoxic agents -Continue to monitor -COVID-19 PNA, ID onboard Subjective Date of service: 12/08/19 Principal diagnosis: COVID-19 PNEUMONIA Interval history: no overnight events reported Objective - Vital Signs Vital signs: Vital Signs - 12hr 12/07/19 12/07/19 21:56 22:00 Temperature 98.2 F Pulse Rate 47 L Respiratory 20 Rate Blood Pressure 163/81 O2 Sat by Pulse 96 96 Oximetry - Lab 12/07/19 06:20 12/07/19 06:20 Most recent lab results Calcium 8.8 mg/dL (8.4-10.2) 12/07/19 06:20 Phosphorus 4.50 mg/dL (2.5-4.5) 12/05/19 05:30 Urine Creatinine 193.5 mg/dL (0.1-20.0) H 11/30/19 05:08 Urine Sodium 60 mmol/L 11/30/19 09:32 Urine Total Protein 50 mg/dL (5-11.8) H 11/30/19 05:08 Medications & Allergies - Medications Allergies/Adverse Reactions: Allergies No Known Allergies Allergy (Unverified 11/29/19 17:43) Home Medications: Home Medications Medication Instructions Recorded Confirmed Last Taken Type No Known Home Medications [No 11/30/19 11/30/19 Unknown History Reported Home Medications] Active Medications: Generic Name Dose Route Start Last Admin Trade Name Freq PRN Reason Stop Dose Admin Acetaminophen 650 mg 11/29/19 23:30 12/04/19 05:17 Tylenol PO 650 mg Q4H PRN Administration Fever >101 Apixaban 5 mg 12/01/19 11:00 12/07/19 21:52 Eliquis PO 5 mg Q12HR [place] Administration Ascorbic Acid 1,000 mg 12/01/19 11:00 12/07/19 21:54 Vitamin C PO 1,000 mg BID [place] Administration Cholecalciferol 5,000 unit 12/01/19 11:00 12/07/19 10:40 Vitamin D3 PO 5,000 unit DAILY [place] Administration REMDESIVIR 100 mg/ Sodium 250 mls @ 500 mls/hr 12/05/19 10:00 12/07/19 10:40 Chloride IV 12/08/19 10:29 500 mls/hr Q24HR [place] Administration Sodium Chloride 1,000 mls @ 50 mls/hr 12/04/19 14:45 12/07/19 05:20 Nacl 0.9% 1000 Ml IV Infused DIRECT [place] Infusion Methylprednisolone Sodium Succinate 40 mg 12/04/19 14:00 12/08/19 06:16 Solu-Medrol IV 40 mg Q8HR [place] Administration Ondansetron HCl 4 mg 11/29/19 23:31 Zofran IV Q8H PRN Nausea And Vomiting Sodium Chloride 50 ml 12/04/19 14:00 12/07/19 11:49 Nacl 0.9% IV 12/08/19 11:01 50 ml Q24HR@1100 [place] Administration
[2019-12-08] MEDS: ASCORBIC ACID 500 MG TAB PO SCH ×2 (11:16→21:00)
[2019-12-08] MEDS: CHOLECALCIFEROL (VIT D3) 5,000 UNIT TAB PO SCH (11:17)
[2019-12-08] MEDS: REMDESIVIR 100 MG in SODIUM CHLORIDE 0.9% 250ML 250 ML IV SCH (11:17)
[2019-12-08] MEDS: APIXABAN 5 MG TAB PO SCH ×2 (11:17→21:01)
[2019-12-08] MEDS: SODIUM CHLORIDE 0.9% 50 ML IVPB IV SCH (12:10)
--- NOTE | 2019-12-08 13:30 | Discharge Summary ---
Providers - Providers Date of Admission: 11/29/19 22:25 Date of discharge: 12/09/19 Attending physician: JAIR IBRAHIM 11/29/19 22:11 Consult to Physician [CONS] Urgent Comment: Consulting Provider: ROSALES ALEXANDER Physician Instructions: Reason For Exam: SUSPECTED COVID PNEUMONIA 11/30/19 06:00 Consult to Physician [CONS] Routine Comment: Consulting Provider: ORIANA ELIZALDE Physician Instructions: Reason For Exam: JONH Primary care physician: [employer] Hospitalization Condition: Stable Pertinent studies: Chest x-ray, chest CTA Hospital course: Patient is a 54-year-old male with a past medical history hypertension admitted to the hospital on 11/30/2019 due to cough, fever, generalized body aches, and diarrhea for last 3 days. Patient reports that 2 of his coworkers have tested positive for coronavirus. He has been wearing a mask at his job. He has not been tested for coronavirus. His is here with similar symptoms. COVID-19 testing was positive patient had been having fevers with T-max of 102.3 Daily course: 11/30: Still with intermittent fever, No increased oxygen need, await ID re- evaluation, may need antibiotics considering recurrent fever. Dexamethasone 6 mg daily started. ID is also initiating rem D severe and check an interleukin-6 level. No antibiotics at this time as patient procalcitonin is normal 12/01: We will continue dexamethasone. Monitor for 1 additional day will attempt to see if we can get ambulatory oxygen greater than 94% prior to discharge. Patient verbalized understanding. Renal function continues to improve. Outpatient nephrology follow-up. 12/02: Continue current therapy, discussed plan of care as it relates to oxygen with the patient, continue dexamethasone. Anticipate discharge in am if Spo2>94% 12/03: We will start patient on oxygen as oxygen saturation with ambulation is between 90 to 91%. continue Remdesivir as started by ID, plan os for 200mg iv x 1 AND THEN 100MG IV Daily x 4 doses, consent was obtained by ID. also patient changed to Solumderol 40mg, Interlukin 6 still pending,. Tocilzuimab was also given today. Hypoxia persist and plan discussed with he patient in detail 12/04: Continue Remdesivir and Solu-Medrol, follow inflammatory markers, wean off O2 as tolerated. Monitor fever curve. 12/05: Continue Remdesivir day 3 of 5 and Solu-Medrol, follow inflammatory markers, wean off O2 as tolerated. Monitor fever curve. Cr trending down 12/06: Remdesivir day 4 of 5, if clinically stable possible d/c tomorrow. will repeat home O2 requirement 12/07: Completed Remdesevir course. patient will need home O2 on discharge. Will be discharged home with home O2 arrangement is complete. 12/08: Patient discharged home with home O2 and tapering dose of steroid. Discharge diagnosis: Sepsis due to COVID-19 pneumonia -Continue to treat underlying condition, blood culture negative COVID-19 pneumonia -ID following, started on Ramdisivir -Status post tocilizumab x1 dose -Follow inflammatory markers Acute hypoxemic respiratory failure -Due to COVID-19 pneumonia, continue supplemental O2, -Wean off O2 as tolerated Secondary Coagulopathy -Placed on Eliquis 5 mg twice daily JONH secondary to vasomotor nephropathy -Continue to monitor renal function, follow BMP DVT prophylaxis, on Eliquis DC planning: Home with self care Hospitalist Physical VITAL SIGNS: Reviewed. GENERAL: The patient appears normally developed, Vital signs as documented. HEAD: No signs of head trauma. EYES: Pupils are equal. Extraocular motions intact. EARS: Hearing grossly intact. MOUTH: Oropharynx is normal. NECK: No adenopathy, no JVD. CHEST: Chest with clear breath sounds bilaterally. No wheezes, rales, or rhonchi. CARDIAC: Regular rate and rhythm. S1 and S2, without murmurs, gallops, or rubs. VASCULAR: No Edema. Peripheral pulses normal and equal in all extremities. ABDOMEN: Soft, non tender and non distended. No rebound or guarding, and no masses palpated. Bowel Sounds normal. MUSCULOSKELETAL: Good range of motion of all major joints. Extremities without clubbing, cyanosis or edema. NEUROLOGIC EXAM: Alert and oriented x 3 No focal sensory or strength deficits. Speech normal. Follows commands. PSYCHIATRIC: Mood normal. SKIN: no rash Disposition: DC-01 TO HOME OR SELFCARE Time spent for discharge: 34 minutes Core Measure Documentation - Palliative Care Palliative Care/ Comfort Measures: Not Applicable - Core Measures Any of the following diagnoses?: none Exam - Constitutional Vitals: Temp Pulse Resp BP Pulse Ox 98.4 F 43 L 20 166/90 95 12/08/19 11:31 12/08/19 11:31 12/08/19 11:31 12/08/19 11:31 12/08/19 11:31 Plan Activity: advance as tolerated Weight Bearing Status: Weight Bear as Tolerated Diet: low fat, low salt Follow up with: PRIMARY CARE, [Primary Care Provider] - 3-5 Days ROSALES ALEXANDER MD [Staff Physician] - 7 Days Prescriptions: Prednisone [predniSONE 10 mg (6-Day Pack, 21 Tabs)] 10 mg PO .TAPER #1 tab.ds.pk
[2019-12-09] MEDS: methylPREDNISolone Sod Succinate 40 MG/1 ML INJ IV SCH ×2 (05:21→13:47)
[2019-12-09] MEDS: SODIUM CHLORIDE 0.9% 1000 ML 1,000 ML IV SCH (05:38)
[2019-12-09 09:06] LABS: BUN/Creatinine Ratio 22; Blood Urea Nitrogen 26 mg/dL (9-20); Calcium 8.6 mg/dL (8.4-10.2); Hemolysis Index 2
[2019-12-09 09:09] LABS: C-Reactive Protein 0.3 mg/dL (0.00-1.30)
--- NOTE | 2019-12-09 09:45 | Progress Note ---
Assessment and Plan Acute renal failure likely secondary to prerenal azotemia Sepsis COVID-19 POSITIVE Bilateral Pneumonia secondary to COVID-19 Plan: -JONH resolved -Renally dose medications -Strict I&O monitoring -Obtain daily weights -Avoid nephrotoxic agents -Continue to monitor -COVID-19 PNA, ID onboard will sign off. Subjective Date of service: 12/09/19 Principal diagnosis: COVID-19 PNEUMONIA Interval history: No overnight events Objective - Vital Signs Vital signs: Vital Signs - 12hr 12/08/19 12/09/19 12/09/19 22:00 00:56 05:39 Temperature 98.3 F 97.7 F Pulse Rate 46 L 40 L Respiratory 20 18 18 Rate Respiratory 20 Rate [ Generalized] Blood Pressure 130/87 143/89 O2 Sat by Pulse 96 96 Oximetry - Lab 12/07/19 06:20 12/09/19 05:47 Most recent lab results Calcium 8.6 mg/dL (8.4-10.2) 12/09/19 05:47 Phosphorus 4.50 mg/dL (2.5-4.5) 12/05/19 05:30 Urine Creatinine 193.5 mg/dL (0.1-20.0) H 11/30/19 05:08 Urine Sodium 60 mmol/L 11/30/19 09:32 Urine Total Protein 50 mg/dL (5-11.8) H 11/30/19 05:08 Medications & Allergies - Medications Allergies/Adverse Reactions: Allergies No Known Allergies Allergy (Unverified 11/29/19 17:43) Home Medications: Home Medications Medication Instructions Recorded Confirmed Last Taken Type Prednisone [predniSONE 10 mg 10 mg PO .TAPER #1 tab.ds.pk 12/08/19 Unknown Rx (6-Day Pack, 21 Tabs)] Active Medications: Generic Name Dose Route Start Last Admin Trade Name Freq PRN Reason Stop Dose Admin Acetaminophen 650 mg 11/29/19 23:30 12/04/19 05:17 Tylenol PO 650 mg Q4H PRN Administration Fever >101 Apixaban 5 mg 12/01/19 11:00 12/08/19 21:01 Eliquis PO 5 mg Q12HR [place] Administration Ascorbic Acid 1,000 mg 12/01/19 11:00 12/08/19 21:00 Vitamin C PO 1,000 mg BID [place] Administration Cholecalciferol 5,000 unit 12/01/19 11:00 12/08/19 11:17 Vitamin D3 PO 5,000 unit DAILY [place] Administration Sodium Chloride 1,000 mls @ 50 mls/hr 12/04/19 14:45 12/09/19 05:38 Nacl 0.9% 1000 Ml IV 50 mls/hr DIRECT [place] Administration Methylprednisolone Sodium Succinate 40 mg 12/04/19 14:00 12/09/19 05:21 Solu-Medrol IV 40 mg Q8HR [place] Administration Ondansetron HCl 4 mg 11/29/19 23:31 Zofran IV Q8H PRN Nausea And Vomiting
[2019-12-09] MEDS: ASCORBIC ACID 500 MG TAB PO SCH (11:13)
[2019-12-09] MEDS: CHOLECALCIFEROL (VIT D3) 5,000 UNIT TAB PO SCH (11:13)
[2019-12-09] MEDS: APIXABAN 5 MG TAB PO SCH (11:14)
--- NOTE | 2019-12-09 13:03 | Progress Note ---
Assessment and Plan Sepsis due to COVID-19 pneumonia -Continue to treat underlying condition, blood culture negative COVID-19 pneumonia -ID following, started on Ramdisivir -Status post tocilizumab x1 dose -Follow inflammatory markers Acute hypoxemic respiratory failure -Due to COVID-19 pneumonia, continue supplemental O2, -Wean off O2 as tolerated Secondary Coagulopathy -Placed on Eliquis 5 mg twice daily JONH secondary to vasomotor nephropathy -Continue to monitor renal function, follow BMP DVT prophylaxis, on Eliquis 11/30: Still with intermittent fever, No increased oxygen need, await ID re- evaluation, may need antibiotics considering recurrent fever. Dexamethasone 6 mg daily started. ID is also initiating rem D severe and check an interleukin-6 level. No antibiotics at this time as patient procalcitonin is normal 12/01: We will continue dexamethasone. Monitor for 1 additional day will attempt to see if we can get ambulatory oxygen greater than 94% prior to discharge. Patient verbalized understanding. Renal function continues to improve. Outpatient nephrology follow-up. 12/02: Continue current therapy, discussed plan of care as it relates to oxygen with the patient, continue dexamethasone. Anticipate discharge in am if Spo2>94% 12/03: We will start patient on oxygen as oxygen saturation with ambulation is between 90 to 91%. continue Remdesivir as started by ID, plan os for 200mg iv x 1 AND THEN 100MG IV Daily x 4 doses, consent was obtained by ID. also patient changed to Solumderol 40mg, Interlukin 6 still pending,. Tocilzuimab was also given today. Hypoxia persist and plan discussed with he patient in detail 12/04: Continue Remdesivir and Solu-Medrol, follow inflammatory markers, wean off O2 as tolerated. Monitor fever curve. 12/05: Continue Remdesivir day 3 of 5 and Solu-Medrol, follow inflammatory markers, wean off O2 as tolerated. Monitor fever curve. Cr trending down 12/06: Remdesivir day 4 of 5, if clinically stable possible d/c tomorrow. will repeat home O2 requirement 12/07: Completed Remdesevir course. patient will need home O2 on discharge. Will be discharged home with home O2 arrangement is complete. DC planning: When clears by ID and completes his Remdesivir dose total 5 days Brief history: Patient is a 54-year-old male with a past medical history hypertension admitted to the hospital on 11/30/2019 due to cough, fever, generalized body aches, and diarrhea for last 3 days. Patient reports that 2 of his coworkers have tested positive for coronavirus. He has been wearing a mask at his job. He has not been tested for coronavirus. His is here with similar symptoms. COVID-19 testing was positive patient had been having fevers with T-max of 102.3 Hospitalist Physical VITAL SIGNS: Reviewed. GENERAL: The patient appears normally developed, Vital signs as documented. HEAD: No signs of head trauma. EYES: Pupils are equal. Extraocular motions intact. EARS: Hearing grossly intact. MOUTH: Oropharynx is normal. NECK: No adenopathy, no JVD. CHEST: Chest with clear breath sounds bilaterally. No wheezes, rales, or rhonchi. CARDIAC: Regular rate and rhythm. S1 and S2, without murmurs, gallops, or rubs. VASCULAR: No Edema. Peripheral pulses normal and equal in all extremities. ABDOMEN: Soft, non tender and non distended. No rebound or guarding, and no masses palpated. Bowel Sounds normal. MUSCULOSKELETAL: Good range of motion of all major joints. Extremities without clubbing, cyanosis or edema. NEUROLOGIC EXAM: Alert and oriented x 3 No focal sensory or strength deficits. Speech normal. Follows commands. PSYCHIATRIC: Mood normal. SKIN: no rash Subjective Date of service: 12/08/19 Principal diagnosis: COVID-19 PNEUMONIA Objective - Constitutional Vitals: Vital Signs - 12hr 12/09/19 12/09/19 05:39 10:00 Temperature 97.7 F Pulse Rate 40 L Respiratory 18 Rate Blood Pressure 143/89 O2 Sat by Pulse 96 95 Oximetry - Labs CBC & Chem 7: 12/07/19 06:20 12/09/19 05:47 Labs: Abnormal lab results 12/09/19 12/09/19 12/09/19 Range/Units 05:47 05:47 05:47 D-Dimer 623.88 H (0-234) ng/mlDDU BUN (9-20) mg/dL Glucose (75-100) mg/dL Ferritin 830.0 H (13.0-400.0) ng/mL Lactate Dehydrogenase 365 H (91-180) units/L 12/09/19 Range/Units 05:47 D-Dimer (0-234) ng/mlDDU BUN 26 H (9-20) mg/dL Glucose 165 H (75-100) mg/dL Ferritin (13.0-400.0) ng/mL Lactate Dehydrogenase (91-180) units/L
[2019-12-09 17:40] VITALS: BP 121/79
== END 2019-12-09 18:40 | disposition home or self-care (01) | DRG 871 ==
LOC: ED 17:38 → IMCU 22:25 → 3A 12-03 11:32
PROVIDERS: ADMIT Internal Medicine; ATTEND Internal Medicine
DX: A41.89 Other specified sepsis (principal); U07.1 COVID-19; J12.89 Other viral pneumonia; N17.0 Acute kidney failure with tubular necrosis; J96.01 Acute respiratory failure with hypoxia; D68.9 Coagulation defect, unspecified; N28.9 Disorder of kidney and ureter, unspecified; I10 Essential (primary) hypertension; E87.5 Hyperkalemia; R79.89 Other specified abnormal findings of blood chemistry
CPT/HCPCS: 36415; 71046; 71275; 80048; 80053; 81001; 82140; 82550; 82570; 82728; 82947; 82962; 83615; 84100; 84145; 84156; 84300; 85007; 85025; 85379; 86140; 87040; 89050; 94760; G0378; J0456; J0696; J1100; J2920; J7030; J7050; Q9967; U0003-CS